=== PATIENT | female | born 1945 | race Caucasian/White ===

== ENCOUNTER 2019-05-22 11:52 | Inpatient (IN) | payer MEDICARE ==
[2019-05-22 13:02] LABS: Hemoglobin 11.4 g/dL (12.0-16.0); Mean Corpuscular HGB CONC 33.9 g/dL (32.0-36.0); Mean Corpuscular Hemoglobin 30.1 pg (27.0-31.0); Mean Corpuscular Volume 88.7 fL (78.0-98.0); Mean Platelet Volume 7.8 fL (7.4-10.4); Platelet Count 190 thou/uL (130-400); White Blood Cell (WBC) Count 2.6 thou/uL (4.8-10.8)
--- NOTE | 2019-05-22 13:05 | RAD ---
EXAM: Left Rib series HISTORY: Rib pain COMPARISON: None FINDINGS: Multiple views of the left ribs shows no evidence of displaced rib fracture. No underlying pleural th ickening or pneumothorax are seen. IMPRESSION: 1. No evidence of displaced rib fracture.
[2019-05-22 13:18] LABS: ALT (SGPT) 12 U/L (8-55); AST (SGOT) 17 U/L (5-34); Albumin 3.8 g/dL (3.4-4.8); Alkaline Phosphatase 53 U/L (40-150); Anion Gap 24 mmol/L (10-20); BUN (Urea Nitrogen) 16 mg/dL (9.8-20.1); Bilirubin, Total 0.4 mg/dL (0.2-1.2); CK (CPK) 29 U/L (29-168); Calc. Creatinine Clearance 0 mL/min (70-130); Calcium 9.2 mg/dL (7.8-10.44); Carbon Dioxide 20 mmol/L (23-31); Chloride 94 mmol/L (98-107); Estimated GFR-MDRD 43; Globulin 2.6 g/dL (2.4-3.5); Glucose 72 mg/dL (83-110); Protein, Total 6.4 g/dL (6.0-8.3); Sodium 135 mmol/L (136-145)
[2019-05-22 13:20] LABS: Potassium 2.8 mmol/L (3.5-5.1)
[2019-05-22 13:27] LABS: Band 15 % (5-11); Eosinophils 2 % (0-10); Lymphocytes 52 % (21-51); MDiff Complete? YES; Monocytes 13 % (0-10); Neutrophil 12 % (42-75); Platelet Morphology Comment Appears Adequate; Polychromasia SLIGHT = 2-3 cells (100X) (0-2/hpf); Reactive Lymphocytes 4 % (0-10)
[2019-05-22] MEDS ORDERED: Potassium Bicarbonate/Cit Ac 25 MEQ TAB ONE (15:17)
[2019-05-22] MEDS ORDERED: Bisacodyl 5 MG TAB PO PRN (15:43)
[2019-05-22] MEDS ORDERED: HYDROcodone/Acetaminophen 5/325 mg Tablet PO PRN (15:43)
[2019-05-22] MEDS ORDERED: Ondansetron PF 4 MG/2 ML Vial IVP PRN (15:43)
[2019-05-22] MEDS ORDERED: Acetaminophen 325 MG TAB PO PRN (15:43)
[2019-05-22] MEDS ORDERED: Ondansetron ODT 4 MG TAB PO PRN (15:43)
[2019-05-22] MEDS ORDERED: Senokot S 8.6-50 MG TAB PO PRN (15:43)
[2019-05-22] MEDS ORDERED: hydrALAZINE 20 MG/ML VIAL SLOW IVP PRN (15:49)
[2019-05-22] MEDS ORDERED: Lorazepam 2 MG/ML VIAL ONE (16:14)
--- NOTE | 2019-05-22 16:58 | HP ---
REASON FOR ADMISSION: Dysphagia, nausea, vomiting, failure to thrive. HISTORY OF PRESENT ILLNESS: Ms. Yin is a very pleasant 74-year-old white female with past medical history of gastroesophageal reflux disease, Schatzki's ring in the esophagus, depression, and iron deficiency anemia, who presents with roughly 6 months of worsening failure to thrive including low appetite, dysphagia, nausea, vomiting. The patient has gone to the point where she is so disgusted that she does not even want to eat food or put food in her mouth because she thinks it is going to make her vomit. The patient has no appetite. Reportedly by family the last thing that she ate was last Thursday, which was one bite of Jell-O and she had to stop because she had thoughts she was going to throw up. The patient was recently seen at [facility] roughly about 2 weeks ago, where she underwent upper endoscopy. Upper endoscopy found a Schatzki's ring per the family, which they believed was mild in severity, and then the patient was recommended safer discharge in outpatient followup. The patient did follow up with mortuary technician, however, family was unhappy with their care and the patient refused to go back to see the mortuary technician. The patient did follow up with her primary care physician, who recommended following up with a different mortuary technician and the patient had an upcoming appointment with Dr. Valera this Thursday. However, due to the fact that the patient was not eating or drinking, they determined that the patient would not make it to the Thursday appointment. I find the patient in the emergency department. She is lying in bed, comfortably, breathing on room air, in no apparent distress. The patient's only complaint at this time is left-sided rib pain. The patient did have an x-ray of the ribs that showed no evidence of acute rib fracture. The patient denies nausea or vomiting, though she has not eaten. The patient has had some diarrhea over the past several weeks that fluctuates. The patient denies trouble breathing. No chest pains. No headaches. No other new neurologic type symptoms. The patient admitted to medical unit with Gastroenterology consultation requested for further recommendations. The patient of note has lost roughly 20 pounds of weight in the last 6 months, weighing about 135 pounds in November, now she is down to 112. When the patient was working for the [employer] from which she retired in 2011, she weighed about 160 pounds and at that time was on medications for diabetes. Since the patient has lost the weight, she has been stopped on diabetes medications secondary to hypoglycemia. During the time that the patient was working at the [employer], she was around 160 to 170 pounds. PAST MEDICAL HISTORY: 1. Uncontrolled GERD. 2. Schatzki's ring seen on recent EGD studies. 3. Hyperlipidemia. 4. Iron deficiency anemia. 5. Depression. REVIEW OF SYSTEMS: A 10-point review of systems was completed and negative aside from what mentioned in history of present illness. MEDICATIONS: 1. Ferrous gluconate. 2. Atorvastatin. 3. Prilosec. 4. Mirtazapine. ALLERGIES: SULFA MEDICATIONS, METOPROLOL. PHYSICAL EXAMINATION: VITAL SIGNS: Temperature 98, blood pressure 123/78, respirations 13, and pulse 75. GENERAL: The patient is in no apparent distress, lying in bed comfortably. She has a flat affect and is generally unhappy with being dragged to the hospital by her family. HEENT: Head is normocephalic, atraumatic. There is no lymphadenopathy. There are no oral lesions or exudates on the tonsils. CARDIAC: Regular rate and rhythm. No murmurs, rubs, or gallops. LUNGS: Clear to auscultation bilaterally. No wheezes, rales, or rhonchi. ABDOMEN: Soft, nontender, and nondistended without guarding or rigidity. Left flank, there is minor tenderness to palpation on the left rib. However, there are no gross anatomical defects. BACK: Paraspinal muscles are tender to palpation in the lumbar area. However, there are no gross deformities of the spine. EXTREMITIES: No edema in all 4 extremities. There are no gross deformities. NEUROLOGIC: Cranial nerves II through XII grossly intact. The patient is globally weak, however, there are no focal neurologic deficits. PSYCHIATRIC: The patient has a flat affect and appears to be clinically depressed. LABORATORY DATA: WBC 2.6, RBC 3.8, hemoglobin 11.4, hematocrit 33.7, MCV 87.7, and platelets 190. Sodium 135, potassium 2.8, chloride 94, carbon dioxide 20, anion gap of 22, blood urea nitrogen 16, creatinine of 1.2, estimated GFR of 43, glucose 72, calcium 9.2, AST 17, ALT 12, alkaline phosphatase 53, and creatine kinase 29. Troponin less than 0.010. Serum total protein 6.4, albumin 3.8. ASSESSMENT: 1. Failure to thrive. The patient with worsening nausea, vomiting, and no appetite over the past 6 months. She has unintentionally lost 20 pounds of weight and now refuses to eat because she has no appetite. 2. Uncontrolled gastroesophageal reflux disease with recent esophagogastroduodenoscopy 2 weeks ago at [facility]. 3. Schatzki's ring, seen on esophagogastroduodenoscopy. 4. Depression. 5. Unintentional weight loss. 6. Hyperlipidemia. 7. Iron deficiency. 8. Hypokalemia with a critical potassium of 2.8. 9. Acute kidney injury with a creatinine of 1.2, however, baseline renal function is unknown. PLAN: 1. Admit to medical floor/surgical unit. 2. Gastroenterology consultation, recommendations appreciated. 3. The patient has had recent EGD that was abnormal for Schatzki's ring and gastroesophageal reflux disease. 4. The patient was recommended to have a gastric emptying study in the outpatient Clinic at [facility], however, the patient and her daughter state that she is unable to complete the study as she cannot tolerate eating or drinking anything. 5. Replace potassium. 6. IV fluid resuscitation for acute kidney injury. 7. Resume PPI therapy. 8. Consider appetite stimulant. 9. In this patient, I do believe that uncontrolled clinical depression may be worsening her medical problems and her drive to eat. 10. GI prophylaxis with Protonix. 11. DVT prophylaxis with SCDs. Job ID: [id number]
[2019-05-22 17:29] VITALS: BMI 20.1
[2019-05-22] MEDS: Potassium Chloride 20 MEQ in Lactated Ringer's 1,000 ML IV SCH (18:54)
[2019-05-22] MEDS: Mirtazapine 15 MG Soltab PO SCH (20:28)
[2019-05-22] MEDS ORDERED: Famotidine 20 MG TAB PO SCH (21:00)
[2019-05-23 07:14] LABS: Hemoglobin 9.6 g/dL (12.0-16.0); Mean Corpuscular HGB CONC 32.2 g/dL (32.0-36.0); Mean Corpuscular Hemoglobin 28.7 pg (27.0-31.0); Mean Platelet Volume 8.1 fL (7.4-10.4); Platelet Count 151 thou/uL (130-400); RBC Distribution Width 13.9 % (11.5-14.5); Red Blood Cell (RBC) Count 3.33 mill/uL (4.20-5.40); White Blood Cell (WBC) Count 2.4 thou/uL (4.8-10.8)
[2019-05-23 07:20] LABS: Anion Gap 19 mmol/L (10-20); BUN (Urea Nitrogen) 12 mg/dL (9.8-20.1); Calc. Creatinine Clearance 43 mL/min (70-130); Calcium 8.5 mg/dL (7.8-10.44); Carbon Dioxide 18 mmol/L (23-31); Chloride 102 mmol/L (98-107); Estimated GFR-MDRD 61; Potassium 3.1 mmol/L (3.5-5.1); Sodium 136 mmol/L (136-145)
[2019-05-23 07:26] LABS: Glucose 57 mg/dL (83-110)
[2019-05-23 07:47] LABS: Band 4 % (5-11); Eosinophils 8 % (0-10); Lymphocytes 50 % (21-51); MDiff Complete? YES; Monocytes 18 % (0-10); Neutrophil 20 % (42-75); Platelet Morphology Comment Appears Adequate; Polychromasia SLIGHT = 2-3 cells (100X) (0-2/hpf)
[2019-05-23] MEDS: Potassium Chloride 20 MEQ in Lactated Ringer's 1,000 ML IV SCH (07:58)
[2019-05-23] MEDS: Pantoprazole 40 MG VIAL IVP SCH (07:59)
[2019-05-23 11:40] LABS: Bilirubin 1+ (Negative); Blood, Urine Negative (Negative); Clarity Clear (Clear); Glucose, Urine (Dipstick) Normal (Negative); Leukocyte 250 Leu/uL (Negative); Nitrite Negative (Negative); Protein, Urine (Dipstick) 70 mg/dL (Neg-Trace); RBC/HPF 0-3 HPF (0-3); Renal Epithelial 0-3 HPF (None Seen); Squamous Epithelial 0-3 HPF (0-3); Transitional Epithelial 0-3 HPF (None Seen); Urobilinogen 3 mg/dL (Less than 2)
[2019-05-23 11:52] LABS: Bacteria/HPF Rare-Few HPF (None Seen)
[2019-05-23] MEDS ORDERED: Dextrose 50% Abboject 50 ML SYRINGE ONE (12:54)
[2019-05-23] MEDS: cefTRIAXone\\ROCEPHIN 2 GM in Sodium Chloride 0.9% 100 ML IVPB SCH (14:31)
--- NOTE | 2019-05-23 15:45 | PDOC.HOSPP ---
- Subjective Subjective: Patient seen and examined. Clinically unchanged. Does not have desire to eat or drink because "it doesn't taste right". Has not vomited since arrival. Has not tried medications to stimulate appetite. Does not use dietary supplements such as ensure. Discussed case with patient, daughter, and dietitian. - Objective Vital Signs & Weight: Vital Signs (12 hours) Temp Pulse Resp BP Pulse Ox 05/23/19 08:00 97.6 F 69 18 93/54 L 100 05/23/19 04:00 97.6 F 74 18 102/66 100 Weight Admit Weight 110 lb 3.698 oz Weight 110 lb 3.698 oz I&O: 05/22/19 05/23/19 05/24/19 06:59 06:59 06:59 Intake Total 300 Balance 300 Result Diagrams: 05/23/19 06:34 05/23/19 06:34 Additional Labs: Accuchecks 05/23/19 12:11 POC Glucose 57 L* ROS - Medication Medications: Active Medications Generic Name Dose Route Start Last Admin Trade Name Freq PRN Reason Stop Dose Admin Potassium Chloride 20 meq/ 1,010 mls @ 75 mls/hr 05/22/19 16:30 05/23/19 07: 58 Lactated Ringer's IV 1,010 mls .[id number] LIZZ Administration Ceftriaxone Sodium 2 gm/ 100 mls @ 200 mls/hr 05/23/19 14:00 05/23/19 14:31 Sodium Chloride IVPB 05/30/19 16:00 100 mls Q24HR LIZZ Administration Mirtazapine 15 mg 05/22/19 21:00 05/22/19 20:28 Remeron Soltab PO Not Given HS LIZZ Ondansetron HCl 4 mg 05/22/19 15:43 05/23/19 08:15 Zofran IVP 4 mg Q6H PRN Administration Nausea/Vomiting Pantoprazole Sodium 40 mg 05/23/19 09:00 05/23/19 07:59 Protonix IVP 40 mg DAILY LIZZ Administration - Exam NAD, awake alert Eye: PERRL, anicteric sclera ENT: normocephalic atraumatic, moist mucosa Neck: supple, symmetric Heart: RRR, no murmur, no gallops, no rubs Respiratory: CTAB, no wheezes, no rales, no ronchi, normal chest expansion Gastrointestinal: soft, non-tender, non-distended, no palpable masses, no guarding, no rigidity Neurological: CN's grossly intact, normal sensation to touch, no focal deficits Musculoskeletal: normal tone Psychiatric: A&O x 3, flat affect Hosp A/P (1) Dysphagia Code(s): R13.10 - DYSPHAGIA, UNSPECIFIED Status: Acute (2) Failure to thrive in adult Status: Acute (3) Weight loss, unintentional Code(s): R63.4 - ABNORMAL WEIGHT LOSS Status: Acute (4) Depression Code(s): F32.9 - MAJOR DEPRESSIVE DISORDER, SINGLE EPISODE, UNSPECIFIED Status : Acute (5) GERD (gastroesophageal reflux disease) Code(s): K21.9 - GASTRO-ESOPHAGEAL REFLUX DISEASE WITHOUT ESOPHAGITIS Status: Acute (6) Lower esophageal ring (Schatzki) Code(s): K22.2 - ESOPHAGEAL OBSTRUCTION Status: Acute - Plan Plan: GI consultation, recommendations appreciated Recent EGD at [facility] - though they were un happy with the care and request a second opinion - records requested and in the paper chart Consider gastric emptying study - though patient states "I cant drink that fluid , it doesn't taste good" Has never had C-scope Start Megestrol for appetite stimulant Start Nutritional supplements - Ensure TID with meals Consult dietitian, recommendations appreciated Continue home medications as able GI and DVT PPX
[2019-05-23] MEDS: Megestrol Acetate 40 MG TAB PO SCH ×2 (17:53→20:50)
[2019-05-23] MEDS: Mirtazapine 15 MG Soltab PO SCH (20:50)
[2019-05-23] MEDS: D5W-AA 4.25% with LYTES 1,000 ML IV SCH (21:35)
--- NOTE | 2019-05-24 02:53 | CON ---
DATE OF CONSULTATION: 05/23/2019 CHIEF COMPLAINT: Loss of appetite, weight loss. HISTORY OF PRESENT ILLNESS: Ms. Yin is a 74-year-old woman who reports around 6 weeks ago that her food quit smelling good to her and had a foul smell to her and also foul taste. Anything that she would put in her mouth would make her gag. She has never really got to the point that she could swallow her food and even though she maybe having some nausea, nausea and vomiting have not been actual significant factors with this. She just has lost all taste and smell for food and that when she tries to swallow, it makes her gag. She has had no abdominal pain with this. Had some soreness around the left rib. She did have a few episodes of brown watery diarrhea, but does not have frequent bowel movement. She is unable to really quantify how often she has been having bowel movement otherwise. She has had no blood in the stool. She has never had a colonoscopy. Due to her nausea and lack of oral intake and has become dehydrated, she went to [facility] about a month ago. An upper endoscopy was performed, which reportedly showed the Schatzki ring, but otherwise was unremarkable. She had a CT scan of the abdomen and pelvis at [facility] that showed no pancreatic lesion or other obvious explanation for her symptoms. She was reported to have minimal stranding densities suggested along the medial aspect of the mid ascending colon. She was on no medications over the last few months prior to the onset of her symptoms. She had been on blood pressure medicine, diabetes medicine in the past, but quit taking those about a year ago due to some gradual weight loss, but working. Her baseline weight in the past had been in the 160-180 range, however, she lost down to 135, it is her new baseline over the last few years. Over the last 6 weeks, she has lost an additional 20 pounds or so. After her hospitalization a month ago, she was discharged on iron and atorvastatin, omeprazole, and mirtazapine. Here in the hospital, she has been given Clinimix peripheral nutrition, Megace along with the mirtazapine. PAST MEDICAL HISTORY: Diabetes and hypertension for which she no longer had to take medication after gradual weight loss over the last few years. Also recently has been started on cholesterol medication for hyperlipidemia. PAST SURGICAL HISTORY: Hysterectomy. FAMILY HISTORY: Negative for GI malignancy. SOCIAL HISTORY: No alcohol, tobacco, or drugs. ALLERGIES: SULFA, METOPROLOL. MEDICATION: Noted above. Currently in the hospital, she is on 1. Ceftriaxone. 2. Megace. 3. Mirtazapine. At home, she was on 1. Omeprazole. 2. Mirtazapine. 3. Ferrous gluconate. 4. Atorvastatin. REVIEW OF SYSTEMS: Negative x10 systems reviewed except as stated in the history of present illness. PHYSICAL EXAMINATION: VITAL SIGNS: Temperature 97.8, pulse 83, blood pressure 132/69. GENERAL: She is in no acute distress. Alert and oriented x3. HEENT: Eyes have no scleral icterus. Oropharynx is clear without lesions. No cervical or supraclavicular lymphadenopathy. LUNGS: Clear to auscultation bilaterally. HEART: Regular rate and rhythm without murmur. ABDOMEN: Soft. She has some minimal tenderness over the left floating rib. Bowel sounds are present. No hepatomegaly. EXTREMITIES: No lower extremity edema. NEUROLOGIC: Cranial nerves are grossly intact. LABORATORY DATA: White blood cell count 2.4, hemoglobin is 9.6, platelets 151, creatinine 0.9, bilirubin 0.4. AST 17, ALT 12, alkaline phosphatase 53, albumin 3.8, MCV 89. IMPRESSION: 1. Altered sense of taste and smell with gagging with anything she puts in her mouth with associated loss of appetite. Upper endoscopy last month was negative. She also had a CT scan did not show any obvious pancreatic lesion or malignancy in the abdomen. I will need to rule out a central process. 2. Dehydration and acute kidney disease, improved. 3. Anemia, normocytic. Hemoglobin dropped from 11.4 to 9.6 with rehydration. There is some degree of pancytopenia with low white blood cell count at 2.4 with 20% neutrophils and also borderline low platelet count at 151. 4. Neutropenia. RECOMMENDATIONS: 1. CT scan of the brain tomorrow with contrast. 2. Check iron studies, B12, and folate. 3. Check tissue transglutaminase antibody. 4. Obtain recent endoscopy report. 5. If she is iron deficient, she will need colonoscopy and I would anticipate repeat upper endoscopy. 6. Consider hematology evaluation of the neutropenia depending on clinical course. Job ID: [id number]
[2019-05-24 06:14] LABS: Hemoglobin 9.7 g/dL (12.0-16.0); Hypochromia SLIGHT = 6-15 cells (100X) (0-5/hpf); Lymphocytes 52 % (21-51); MDiff Complete? YES; Mean Corpuscular HGB CONC 32.6 g/dL (32.0-36.0); Mean Corpuscular Volume 88.9 fL (78.0-98.0); Mean Platelet Volume 7.7 fL (7.4-10.4); Monocytes 10 % (0-10); Neutrophil 38 % (42-75); Platelet Count 146 thou/uL (130-400); Platelet Morphology Comment Appears Adequate; Red Blood Cell (RBC) Count 3.36 mill/uL (4.20-5.40); White Blood Cell (WBC) Count 2.2 thou/uL (4.8-10.8)
[2019-05-24 06:15] LABS: Anion Gap 12 mmol/L (10-20); BUN (Urea Nitrogen) 11 mg/dL (9.8-20.1); Calc. Creatinine Clearance 44 mL/min (70-130); Calcium 8.7 mg/dL (7.8-10.44); Carbon Dioxide 24 mmol/L (23-31); Chloride 101 mmol/L (98-107); Estimated GFR-MDRD 63; Glucose 104 mg/dL (83-110); Iron 52 ug/dL (50-170); Iron Binding Capacity, Total 150 mcg/dL (265-497); Sodium 134 mmol/L (136-145)
[2019-05-24 06:19] LABS: Potassium 2.9 mmol/L (3.5-5.1)
[2019-05-24 06:33] LABS: Ferritin 476.53 ng/mL (10-291); Thyroid Stimulating Hormone 2.1588 uIU/mL (0.35-4.94)
[2019-05-24 06:47] LABS: Folate (Folic Acid) 1.9 ng/mL (7.0-31.4)
[2019-05-24] MEDS ORDERED: Potassium Chloride 40 MEQ in Sodium Chloride 0.9% 250 ML 250 ML IVPB SCH (07:00)
[2019-05-24] MEDS: Megestrol Acetate 40 MG TAB PO SCH ×4 (09:22→20:48)
[2019-05-24] MEDS: Pantoprazole 40 MG VIAL IVP SCH (09:23)
[2019-05-24] MEDS: Potassium Chloride 20 MEQ in Premix Bag 1 BAG IVPB SCH ×2 (09:24→12:59)
--- NOTE | 2019-05-24 11:37 | CT ---
EXAM: CT brain without and with contrast HISTORY: Abnormal sense of smell and taste; evaluate for brain tumor COMPARISON: None TECHNIQUE: Multiple contiguous axial images were obtained and a CT of the brain without and with cont rast. FINDINGS: The brain is normal in morphology and attenuation without focal lesions or confluent areas of infarction. There is no evidence of hydrocephalus, intracranial hemorrhage, or extra-axial fluid collection. No abnormal enhancement is seen. The calvarium and overlying soft tissues are unremarkable. The visualized paranasal sinuses and masto id air cells are well aerated. IMPRESSION: No evidence of acute intracranial abnormality
--- NOTE | 2019-05-24 14:03 | PDOC.HOSPP ---
- Subjective Subjective: Seen and examined. Patients sister at bedside. Patient clinically unchanged. Flat affect. No desire to eat. Patient states she hasent seen any improvement from Megestrol. - Objective Vital Signs & Weight: Vital Signs (12 hours) Temp Pulse Resp BP BP Pulse Ox 05/24/19 08:00 97.4 F L 82 20 104/69 97 05/24/19 04:00 97.5 F L 74 20 112/73 97 Weight Admit Weight 110 lb 3.698 oz Weight 110 lb 3.698 oz I&O: 05/23/19 05/24/19 05/25/19 06:59 06:59 06:59 Intake Total 540 Balance 540 Result Diagrams: 05/24/19 05:45 05/24/19 05:45 Additional Labs: Accuchecks 05/24/19 05/23/19 05/23/19 04:58 20:31 16:27 POC Glucose 105 69 L 68 L Radiology Reviewed by me: Yes (CT head) ROS - Medication Medications: Active Medications Generic Name Dose Route Start Last Admin Trade Name Freq PRN Reason Stop Dose Admin Ceftriaxone Sodium 2 gm/ 100 mls @ 200 mls/hr 05/23/19 14:00 05/23/19 14:31 Sodium Chloride IVPB 05/30/19 16:00 100 mls Q24HR LIZZ Administration Amino Acids/Electrolytes/Dextrose 1,000 mls @ 41.667 mls/hr 05/23/19 18:00 21:35 Clinimix E 4.25/5 IV 1,000 mls .Q24H LIZZ Administration Megestrol Acetate 40 mg 05/23/19 17:00 05/24/19 09:22 Megace PO 40 mg QID LIZZ Administration Mirtazapine 15 mg 05/22/19 21:00 05/23/19 20:50 Remeron Soltab PO 15 mg HS LIZZ Administration Ondansetron HCl 4 mg 05/22/19 15:43 05/23/19 08:15 Zofran IVP 4 mg Q6H PRN Administration Nausea/Vomiting Pantoprazole Sodium 40 mg 05/23/19 09:00 05/24/19 09:23 Protonix IVP 40 mg DAILY LIZZ Administration Sodium Chloride 10 ml 05/24/19 09:00 05/24/19 09:26 Flush - Normal Saline IVF Not Given Q12HR LIZZ - Exam NAD Eye: anicteric sclera Eye - other findings: EOMI ENT: moist mucosa Neck: supple, no JVD Heart: RRR, no murmur Respiratory: CTAB, no wheezes, no rales, no ronchi Gastrointestinal: soft, non-tender, non-distended, normal bowel sounds Extremities: no clubbing, no edema Skin: no rashes Neurological: CN's grossly intact, normal sensation to touch Musculoskeletal: generalized weakness Psychiatric: A&O x 3, flat affect Hosp A/P (1) Dysphagia Code(s): R13.10 - DYSPHAGIA, UNSPECIFIED Status: Acute (2) Failure to thrive in adult Status: Acute (3) Weight loss, unintentional Code(s): R63.4 - ABNORMAL WEIGHT LOSS Status: Acute (4) Depression Code(s): F32.9 - MAJOR DEPRESSIVE DISORDER, SINGLE EPISODE, UNSPECIFIED Status : Acute (5) GERD (gastroesophageal reflux disease) Code(s): K21.9 - GASTRO-ESOPHAGEAL REFLUX DISEASE WITHOUT ESOPHAGITIS Status: Acute (6) Lower esophageal ring (Schatzki) Code(s): K22.2 - ESOPHAGEAL OBSTRUCTION Status: Acute - Plan Plan: GI consultation, recommendations appreciated Recent EGD at [facility] Has never had C-scope Trial of Megestrol for appetite stimulant Nutritional supplements - Ensure TID with meals Consult dietitian, recommendations appreciated CT head reviewed - No acute pathology Continue home medications as able Replace electrolytes as needed GI and DVT PPX
[2019-05-24] MEDS: cefTRIAXone\\ROCEPHIN 2 GM in Sodium Chloride 0.9% 100 ML IVPB SCH (15:13)
[2019-05-24] MEDS ORDERED: Potassium Chloride 20 MEQ TAB PO SCH (16:30)
[2019-05-24] MEDS: D5W-AA 4.25% with LYTES 1,000 ML IV SCH (18:17)
--- NOTE | 2019-05-24 18:52 | PRG ---
DATE OF SERVICE: 05/24/2019 SUBJECTIVE: Ms. Yin states that she did get up and walk around some today. She had one small bowel movement without diarrhea. She has had no abdominal pain. Still with no appetite. OBJECTIVE: VITAL SIGNS: Temperature 97.4, pulse 73, and blood pressure 119/82. GENERAL: She is in no acute distress. She is alert and oriented x3. HEENT: Eyes have no scleral icterus. Oropharynx is clear without lesions. No cervical or supraclavicular lymphadenopathy. LUNGS: Clear to auscultation bilaterally. HEART: Regular rate and rhythm without murmur. ABDOMEN: Soft, nontender, and nondistended. Bowel sounds are present. EXTREMITIES: No lower extremity edema. IMPRESSION: 1. Loss of appetite and altered sense of taste and smell of food. CT scan of the brain was negative today. Upper endoscopy last month was reportedly negative. CT scan was also reportedly negative. 2. Dehydration and acute kidney disease with improvement in her creatinine. 3. Normocytic anemia. Her ferritin is 476, iron 52, TIBC 150. This is consistent with anemia of chronic disease. 4. Neutropenia. 5. Folate deficiency. The low folate and normal B12 are not a usual pattern. It is unclear if the anemia and neutropenia could be nutritionally related. Her albumin actually was normal at 3.8. RECOMMENDATIONS: 1. Replace folic acid. 2. Hematology consultation regarding the neutropenia and anemia. 3. We will check thiamine, selenium copper. 4. Await tissue transglutaminase antibody. 5. Again request endoscopy and pathology reports from [facility] from last month. 6. Continue to monitor her nutritional intake over the next few days. Request dietitian recommendations and consideration of calorie count. Next step would likely be percutaneous endoscopic gastrostomy tube placement. However, given her normal albumin on presentation, we will need the assistance of dietitians regarding this. Job ID: [id number]
[2019-05-24 20:13] LABS: INR-International Normal Ratio 1.1; Prothrombin Time 14.2 SEC (12.0-14.7)
[2019-05-24] MEDS: Mirtazapine 15 MG Soltab PO SCH (20:43)
[2019-05-25 06:04] LABS: Anion Gap 14 mmol/L (10-20); BUN (Urea Nitrogen) 10 mg/dL (9.8-20.1); Calc. Creatinine Clearance 49 mL/min (70-130); Calcium 8.4 mg/dL (7.8-10.44); Carbon Dioxide 21 mmol/L (23-31); Chloride 102 mmol/L (98-107); Estimated GFR-MDRD 71; Glucose 102 mg/dL (83-110); Potassium 3.7 mmol/L (3.5-5.1); Sodium 133 mmol/L (136-145)
[2019-05-25 06:13] LABS: Band 1 % (5-11); Eosinophils 6 % (0-10); Hemoglobin 9.8 g/dL (12.0-16.0); Lymphocytes 58 % (21-51); MDiff Complete? YES; Mean Corpuscular HGB CONC 34.2 g/dL (32.0-36.0); Mean Corpuscular Hemoglobin 30.7 pg (27.0-31.0); Mean Corpuscular Volume 89.8 fL (78.0-98.0); Mean Platelet Volume 7.9 fL (7.4-10.4); Monocytes 10 % (0-10); Neutrophil 24 % (42-75); Nucleated RBC 1 % (0); Platelet Count 133 thou/uL (130-400); Platelet Morphology Comment Appears Adequate; RBC Distribution Width 13.9 % (11.5-14.5); Red Blood Cell (RBC) Count 3.19 mill/uL (4.20-5.40); White Blood Cell (WBC) Count 2.6 thou/uL (4.8-10.8)
[2019-05-25] MEDS: Pantoprazole 40 MG VIAL IVP SCH (08:27)
[2019-05-25] MEDS: Megestrol Acetate 40 MG TAB PO SCH ×4 (08:27→21:00)
[2019-05-25] MEDS: Folic Acid 1 MG TAB PO SCH (08:27)
--- NOTE | 2019-05-25 12:26 | PDOC.HOSPP ---
- Subjective Subjective: Seen and examined. Clinically patient looking better with Clinimix on board there is some nutrition going in. Patient still not eating, states that she only ate "1 M&M candy and a sip of orange juice" Agree with calorie count. - Objective Vital Signs & Weight: Vital Signs (12 hours) Temp Pulse Resp BP Pulse Ox 05/25/19 08:00 98 05/25/19 07:35 98.0 F 80 16 136/83 98 Weight Admit Weight 110 lb 3.698 oz Weight 110 lb 3.698 oz I&O: 05/24/19 05/25/19 05/26/19 06:59 06:59 06:59 Intake Total 540 612 Balance 540 612 Result Diagrams: 05/25/19 04:47 05/25/19 04:47 Radiology Reviewed by me: Yes (CT head) ROS - Medication Medications: Active Medications Generic Name Dose Route Start Last Admin Trade Name Freq PRN Reason Stop Dose Admin Folic Acid 1 mg 05/25/19 09:00 05/25/19 08:27 Folvite PO 1 mg DAILY LIZZ Administration Ceftriaxone Sodium 2 gm/ 100 mls @ 200 mls/hr 05/23/19 14:00 05/24/19 15:13 Sodium Chloride IVPB 05/30/19 16:00 100 mls Q24HR LIZZ Administration Amino Acids/Electrolytes/Dextrose 1,000 mls @ 41.667 mls/hr 05/23/19 18:00 18:17 Clinimix E 4.25/5 IV 1,000 mls .Q24H LIZZ Administration Megestrol Acetate 40 mg 05/23/19 17:00 05/25/19 08:27 Megace PO 40 mg QID LIZZ Administration Mirtazapine 15 mg 05/22/19 21:00 05/24/19 20:43 Remeron Soltab PO 15 mg HS LIZZ Administration Ondansetron HCl 4 mg 05/22/19 15:43 05/23/19 08:15 Zofran IVP 4 mg Q6H PRN Administration Nausea/Vomiting Pantoprazole Sodium 40 mg 05/23/19 09:00 05/25/19 08:27 Protonix IVP 40 mg DAILY LIZZ Administration Sodium Chloride 10 ml 05/24/19 09:00 05/25/19 08:28 Flush - Normal Saline IVF Not Given Q12HR LIZZ - Exam NAD Eye: PERRL Eye - other findings: EOMI ENT: normocephalic atraumatic, no oropharyngeal lesions, moist mucosa Neck: supple Heart: RRR, no murmur, no gallops, no rubs Respiratory: CTAB, no wheezes, no rales Gastrointestinal: soft, non-tender, non-distended, normal bowel sounds Extremities: no edema Skin: no rashes Neurological: CN's grossly intact, normal sensation to touch, no focal deficits , no new deficit Musculoskeletal: generalized weakness, diffuse muscle atrophy Psychiatric: A&O x 3, flat affect Hosp A/P (1) Dysphagia Code(s): R13.10 - DYSPHAGIA, UNSPECIFIED Status: Acute (2) Failure to thrive in adult Status: Acute (3) Weight loss, unintentional Code(s): R63.4 - ABNORMAL WEIGHT LOSS Status: Acute (4) Depression Code(s): F32.9 - MAJOR DEPRESSIVE DISORDER, SINGLE EPISODE, UNSPECIFIED Status : Acute (5) GERD (gastroesophageal reflux disease) Code(s): K21.9 - GASTRO-ESOPHAGEAL REFLUX DISEASE WITHOUT ESOPHAGITIS Status: Acute (6) Lower esophageal ring (Schatzki) Code(s): K22.2 - ESOPHAGEAL OBSTRUCTION Status: Acute - Plan Plan: GI consultation, recommendations appreciated Hematology/ Oncology consult requested Calorie count Continue Clinimix until adequate enteral nutrition can be achieved Trial of Megestrol for appetite stimulant Nutritional supplements - Ensure TID with meals Consult dietitian, recommendations appreciated Recent EGD at [facility] Has never had C-scope CT head reviewed - No acute pathology Continue home medications as able Replace electrolytes as needed GI and DVT PPX
--- NOTE | 2019-05-25 13:58 | CON ---
DATE OF CONSULTATION: REASON FOR CONSULT: Leukopenia. HISTORY OF PRESENT ILLNESS: Ms. Yin is a 74-year-old female, who was admitted for weight loss and poor appetite. She has had significant weight loss over the last 6 weeks up to 20 pounds and almost 30 over the last several months. She states that food makes her nauseated and so she has been eating very little. She has been evaluated at [facility] and had an upper endoscopy, which showed a Schatzki ring. She also had a CT scan of the abdomen and pelvis at [facility], which was essentially normal. She was admitted to this facility and started on PPN and Megace. She has been seen by Dr. Valera, who ordered nutritional studies. Her B12 was 536 and her folate was 1.9. She has a WBC count of 2.6. On admission, her hemoglobin was 11.4, which is now 9.8 after hydration. We were asked to see the patient regarding her neutropenia. The patient denies any chronic infections. No fevers, chills, or night sweats. She is followed by Dr. Knight at [facility]. History was obtained from the patient and review of medical records as daughter is not at bedside at this time. PAST MEDICAL HISTORY: 1. GERD. 2. Hyperlipidemia. 3. History of iron deficiency anemia. 4. Depression. 5. History of hypertension and diabetes, which she no longer requires. PAST SURGICAL HISTORY: Hysterectomy. MEDICATIONS: Home medicines; 1. Ferrous gluconate. 2. Atorvastatin. 3. Prilosec. 4. Mirtazapine. ALLERGIES: SULFA AND TOPROL. FAMILY HISTORY: Noncontributory. SOCIAL HISTORY: Single. Lives alone. REVIEW OF SYSTEMS: Positive for fatigue and weakness. Otherwise, negative. PHYSICAL EXAMINATION: VITAL SIGNS: Temperature is 98.0, pulse is 80, respiratory rate is 16, and BP is 136/83. She is 98% on room air. GENERAL: This is a frail female, in no acute distress. HEENT: Normocephalic and atraumatic. Pupils are equal and reactive to light. NECK: Supple. CV: Regular rate and rhythm. LUNGS: Clear anterior. ABDOMEN: Soft and nontender. Bowel sounds are positive. EXTREMITIES: No clubbing, cyanosis, or edema. SKIN: No rash. HEMATOLOGIC: No petechiae or purpura. NEUROLOGIC: Nonfocal. PSYCH: She is alert and oriented. PERTINENT LABS AND X-RAYS: Current WBCs are 2.6, hemoglobin 9.8, hematocrit 28.7, platelet count is 133,000, 24% neutrophils, 1% bands, and 58% lymphocytes. She has one nucleated RBC. PT is 14.2 and INR is 1.1. Sodium is 133, potassium is 3.7, chloride is 102, CO2 is 21, BUN is 10, creatinine is 0.79, calcium is 8.4, and magnesium is 1.3. Iron is 52, TIBC is 150, ferritin is 476, B12 is 536, and folate is 1.9. TSH is normal. Total bilirubin is 0.4, AST is 17, ALT is 12, and alkaline phosphatase is 53. Creatine kinase is 29. Serum total protein 6.4, albumin 3.8, and globulin 2.6. ASSESSMENT: 1. Folic acid deficiency. 2. Neutropenia with an ANC of 0.6. 3. Failure to thrive. DISCUSSION: The patient has been placed on folic acid. She continues to eat poorly here and remains on PPN. Agree that she may need a feeding tube if her caloric intake does not increase. Her neutropenia and anemia may be associated with folic acid, although this is unusual presentation as she does not have macrocytic anemia nor an abnormal B12. Case was discussed with Dr. Jonas, who reviewed her medical record. We recommend that we replete her folic acid and monitor her CBC. If her counts do not improve, further workup may be indicated. Thank you for the consult. Job ID: [id number]
[2019-05-25] MEDS: cefTRIAXone\\ROCEPHIN 2 GM in Sodium Chloride 0.9% 100 ML IVPB SCH (15:12)
--- NOTE | 2019-05-25 16:57 | PRG ---
DATE OF SERVICE: 05/25/2019 SUBJECTIVE: Ms. Yin ate small amount of eggs today. She spit her chicken noodle soup back out. She had some orange juice this morning. She states she has been up walking today. She has no abdominal pain, no nausea. OBJECTIVE: VITAL SIGNS: Temperature 98.0, pulse 80, blood pressure 136/83. GENERAL: She is in no acute distress. Alert and oriented x3. LUNGS: Clear to auscultation bilaterally. HEART: Regular rate and rhythm. No murmur. ABDOMEN: Soft, nontender, nondistended. Bowel sounds are present. EXTREMITIES: No lower extremity edema. LABORATORY DATA: White blood cell count 2.6, hemoglobin 9.8, platelets 133, neutrophils 24%. INR 1.1. Creatinine 0.79, magnesium 1.3. IMPRESSION: 1. Failure to thrive and poor oral intake. She has loss of appetite and altered sense of taste and smell with this. She had reportedly negative EGD and CT scan. CT of the brain was negative. She is able to swallow solid food. There is a very flat affect, and depression might be the primary source for her symptoms. Either way, if she is unable to meet her nutritional needs orally, then she might ultimately require Dobbhoff or PEG tube placement. 2. Pancytopenia with neutropenia and normocytic anemia. She is not iron deficient. She has isolated folate deficiency. She is on supplementation. RECOMMENDATIONS: 1. Calorie count. 2. Hematology has evaluated the patient, we will continue to follow the trend of her labs. 3. Additional labs are pending including tissue transglutaminase antibody and additional micronutrients. 4. She is receiving peripheral IV nutrition. 5. She has been given Megace. 6. I am unclear of the indication of the ceftriaxone; however, if this is for any GI indication, I would expect it should be able to be discontinued at this point. Job ID: [id number]
[2019-05-25] MEDS: D5W-AA 4.25% with LYTES 1,000 ML IV SCH (17:21)
[2019-05-25 17:34] LABS: EliA Celiac New Method **** NEW METHOD ****; t-Transglutaminase (tTG) IgA 0.4 EliAU/mL (<7 Negative)
[2019-05-25] MEDS: Mirtazapine 15 MG Soltab PO SCH (21:00)
[2019-05-26 06:22] LABS: Anion Gap 13 mmol/L (10-20); BUN (Urea Nitrogen) 10 mg/dL (9.8-20.1); Calc. Creatinine Clearance 59 mL/min (70-130); Calcium 8.7 mg/dL (7.8-10.44); Carbon Dioxide 23 mmol/L (23-31); Chloride 100 mmol/L (98-107); Estimated GFR-MDRD 89; Glucose 93 mg/dL (83-110); Potassium 3.4 mmol/L (3.5-5.1); Sodium 133 mmol/L (136-145)
[2019-05-26 06:45] LABS: Band 1 % (5-11); Eosinophils 10 % (0-10); Hemoglobin 9.5 g/dL (12.0-16.0); Lymphocytes 58 % (21-51); MDiff Complete? YES; Mean Corpuscular HGB CONC 33.3 g/dL (32.0-36.0); Mean Corpuscular Hemoglobin 29.4 pg (27.0-31.0); Mean Corpuscular Volume 88.3 fL (78.0-98.0); Mean Platelet Volume 8.1 fL (7.4-10.4); Monocytes 17 % (0-10); Neutrophil 14 % (42-75); Platelet Count 128 thou/uL (130-400); RBC Distribution Width 13.8 % (11.5-14.5); RBC Morphology Normal; Red Blood Cell (RBC) Count 3.21 mill/uL (4.20-5.40); White Blood Cell (WBC) Count 2.4 thou/uL (4.8-10.8)
[2019-05-26] MEDS: Pantoprazole 40 MG VIAL IVP SCH (09:09)
[2019-05-26] MEDS: Megestrol Acetate 40 MG TAB PO SCH ×4 (09:29→21:06)
[2019-05-26] MEDS: Folic Acid 1 MG TAB PO SCH (09:29)
[2019-05-26] MEDS ORDERED: Potassium Chloride 20 MEQ TAB PO SCH (09:30)
--- NOTE | 2019-05-26 11:04 | PDOC.MOPN ---
Interval History: Patient states she vomited last night. Refused folic acid pill this am. - Vital Signs Vital Signs: Vital Signs (12 hours) Temp Pulse Resp BP Pulse Ox 05/26/19 07:19 98.0 F 70 18 120/75 96 Weight Admit Weight 110 lb 3.698 oz Weight 110 lb 3.698 oz - Physical Exam General: Alert HEENT: Atraumatic, PERRLA, EOMI, Mucous membr. moist/pink Lungs: Clear to auscultation, Normal air movement Cardiovascular: Regular rate, Normal S1, Normal S2, No murmurs, Gallops, Rubs Abdomen: Normal bowel sounds, Soft, No tenderness, No hepatospenomegaly, No masses Extremities: No clubbing, No cyanosis, No edema, Normal pulses, No tenderness/ swelling Skin: No rashes, No breakdown, No significant lesion Neurological: Normal speech - Labs Result Diagrams: 05/26/19 05:52 05/26/19 05:52 Lab results: Laboratory Results - last 24 hr 05/26/19 05:52: WBC 2.4 L, RBC 3.21 L, Hgb 9.5 L, Hct 28.4 L, MCV 88.3, MCH 29.4 , MCHC 33.3, RDW 13.8, Plt Count 128 L, MPV 8.1, Neutrophils % (Manual) 14 L, Band Neuts % (Manual) 1 L, Lymphocytes % (Manual) 58 H, Monocytes % (Manual) 17 H, Eosinophils % (Manual) 10, RBC Morph Comment Normal 05/26/19 05:52: Sodium 133 L, Potassium 3.4 L, Chloride 100, Carbon Dioxide 23, Anion Gap 13, BUN 10, Creatinine 0.65, Estimated GFR (MDRD) 89, Glucose 93, Calcium 8.7 05/24/19 05:45: Tiss Transglutamin IgA 0.4, Celiac Disease Interp Status: lab reviewed by me A/P - Problem (1) Folate deficiency Current Visit: Yes Code(s): E53.8 - DEFICIENCY OF OTHER SPECIFIED B GROUP VITAMINS Status: Acute (2) Neutropenia Current Visit: Yes Code(s): D70.9 - NEUTROPENIA, UNSPECIFIED Status: Acute (3) Failure to thrive in adult Current Visit: Yes Status: Chronic - Plan Plan: Change folate to SC injection Encourage nutrition Continue PPN Follow CBC
[2019-05-26] MEDS ORDERED: Lidocaine 2% 11 ML SYR TOP SCH (12:15)
--- NOTE | 2019-05-26 13:55 | RAD ---
PORTABLE SUPINE AP ABDOMINAL RADIOGRAPH: 05/26/19 HISTORY: Evaluate nasogastric tube placement. FINDINGS: A nasogastric tube is noted in place which is coiled overlying the upper abdomen. The tip overlies th e expected location of the body of the stomach. Bowel gas pattern is nonspecific. There is linear ate lectasis versus scarring in the region of the lingula. Lung bases are otherwise clear. There is rounded calcification seen just to the right of the L4 vertebral body with translucent cente r centrally and this probably represents a phlebolith as opposed to ureteral calculus. Degenerative c hanges again seen in the spine with left convexed curvature of the thoracolumbar spine. IMPRESSION: Nasogastric tube noted in place which is coiled overlying the abdomen; the tip overlies the expected location of the proximal body of the stomach. POS: C
[2019-05-26] MEDS: Folic Acid 0.5 MG in Admixture Fee 1 EACH SC SCH (13:58)
[2019-05-26] MEDS: cefTRIAXone\\ROCEPHIN 2 GM in Sodium Chloride 0.9% 100 ML IVPB SCH (13:58)
--- NOTE | 2019-05-26 14:12 | PRG ---
DATE OF SERVICE: 05/26/2019 SUBJECTIVE: Ms. Yin refused medications today because she was gagging on oral intake and medicines early this morning and last night. She has had no significant nutritional intake by mouth today. OBJECTIVE: VITAL SIGNS: Temperature is 98, pulse 70, blood pressure 120/75. GENERAL: She is in no acute distress. Awake and alert. LUNGS: Clear to auscultation bilaterally. HEART: Regular rate and rhythm without murmur. ABDOMEN: Soft, nontender, nondistended. Bowel sounds are present. EXTREMITIES: No lower extremity edema. LABORATORY DATA: White blood cell count 2.4, hemoglobin 9.5, platelets 128. INR 1.1. Creatinine 0.65. Tissue transglutaminase antibody was 0.4. IMPRESSION: 1. Failure to thrive and inadequate oral intake with associated nutritional deficiencies. It is unclear if this is psychiatric in etiology. Her CT scan of her brain was normal. Recent endoscopy and CT were reportedly negative. Her serology is negative for evidence of celiac disease. 2. Folate deficiency. She is being changed to subcu administration due to gagging on her pills. 3. Pancytopenia. Hematology is following as well. RECOMMENDATIONS: 1. I placed an NG tube today to start enteral feedings. If she tolerates these well, then depending on the clinical course over the next few days, we may just need to place a percutaneous endoscopic gastrostomy tube. 2. She should be able to stop the peripheral IV nutrition once we get the enteral feeds up in running. 3. She is currently on ceftriaxone. If this is for a GI indication, she should be able to stop it. I am not clear of the current indication for the antibiotic. Job ID: [id number]
--- NOTE | 2019-05-26 15:35 | PDOC.HOSPP ---
- Subjective Encounter Date: 05/26/19 Encounter Time: 09:00 Subjective: Patient seen and examined. today NG tube placed, on PPN, No overnight events - Objective Vital Signs & Weight: Vital Signs (12 hours) Temp Pulse Resp BP Pulse Ox 05/26/19 09:30 96 05/26/19 07:19 98.0 F 70 18 120/75 96 Weight Admit Weight 110 lb 3.698 oz Weight 110 lb 3.698 oz I&O: 05/25/19 05/26/19 05/27/19 06:59 06:59 06:59 Intake Total 612 490 Output Total 100 Balance 612 490 -100 Result Diagrams: 05/26/19 05:52 05/26/19 05:52 ROS - Review of Systems Constitutional: denies: fever, chills, sweats, weakness, malaise, other Eyes: denies: pain, vision change, conjunctivae inflammation, eyelid inflammation, redness, other ENT: denies: ear pain, ear discharge, nose pain, nose discharge, nose congestion , mouth pain, mouth swelling, throat pain, throat swelling, other Respiratory: denies: cough, dry, shortness of breath, hemoptysis, SOB with excertion, pleuritic pain, sputum, wheezing, other Cardiovascular: denies: chest pain, palpitations, orthopnea, paroxysmal noc. dyspnea, edema, light headedness, other Gastrointestinal: denies: nausea, vomitting, abdominal pain, diarrhea, constipation, melena, hematochezia, other Genitourinary: denies: dysuria, frequency, incontinence, hematuria, retention, other Musculoskeletal: denies: neck pain, shoulder pain, arm pain, back pain, hand pain, leg pain, foot pain, other - Medication Medications: Active Medications Generic Name Dose Route Start Last Admin Trade Name Freq PRN Reason Stop Dose Admin Ceftriaxone Sodium 2 gm/ 100 mls @ 200 mls/hr 05/23/19 14:00 05/26/19 13:58 Sodium Chloride IVPB 05/30/19 16:00 100 mls Q24HR LIZZ Administration Amino Acids/Electrolytes/Dextrose 1,000 mls @ 41.667 mls/hr 05/23/19 18:00 17:21 Clinimix E 4.25/5 IV 1,000 mls .Q24H LIZZ Administration Folic Acid 0.5 mg/ 0.1 mls @ 0 mls/hr 05/26/19 12:00 05/26/19 13:58 Miscellaneous Medication SC 05/31/19 12:01 0.1 mls Q24HR LIZZ Administration Megestrol Acetate 40 mg 05/23/19 17:00 05/26/19 13:23 Megace PO Not Given QID LIZZ Mirtazapine 15 mg 05/22/19 21:00 05/25/19 21:00 Remeron Soltab PO 15 mg HS LIZZ Administration Ondansetron HCl 4 mg 05/22/19 15:43 05/23/19 08:15 Zofran IVP 4 mg Q6H PRN Administration Nausea/Vomiting Pantoprazole Sodium 40 mg 05/23/19 09:00 05/26/19 09:09 Protonix IVP 40 mg DAILY LIZZ Administration Sodium Chloride 10 ml 05/24/19 09:00 05/26/19 09:09 Flush - Normal Saline IVF 10 ml Q12HR LIZZ Administration - Exam NAD, ill appearing Eye: PERRL, anicteric sclera Eye - other findings: NG tube in place ENT: normocephalic atraumatic, no oropharyngeal lesions, dry oral mucosa Neck: supple, symmetric, no JVD Heart: RRR, no murmur, no gallops Respiratory: CTAB, no wheezes, no rales Gastrointestinal: soft, non-tender, non-distended, normal bowel sounds Extremities: no cyanosis, no clubbing, no edema Skin: normal turgor, no lesions, no rashes Neurological: CN's grossly intact, normal sensation to touch, no new deficit Musculoskeletal: normal tone, normal strength Psychiatric: normal affect, normal behavior Hosp A/P (1) Depression Code(s): F32.9 - MAJOR DEPRESSIVE DISORDER, SINGLE EPISODE, UNSPECIFIED Status : Acute (2) Dysphagia Code(s): R13.10 - DYSPHAGIA, UNSPECIFIED Status: Acute (3) Folate deficiency Code(s): E53.8 - DEFICIENCY OF OTHER SPECIFIED B GROUP VITAMINS Status: Acute (4) GERD (gastroesophageal reflux disease) Code(s): K21.9 - GASTRO-ESOPHAGEAL REFLUX DISEASE WITHOUT ESOPHAGITIS Status: Acute (5) Lower esophageal ring (Schatzki) Code(s): K22.2 - ESOPHAGEAL OBSTRUCTION Status: Acute (6) Neutropenia Code(s): D70.9 - NEUTROPENIA, UNSPECIFIED Status: Acute (7) Weight loss, unintentional Code(s): R63.4 - ABNORMAL WEIGHT LOSS Status: Acute (8) Failure to thrive in adult Status: Chronic (9) Hypokalemia Code(s): E87.6 - HYPOKALEMIA Status: Acute - Plan old records reviewed/req, plan discussed w/ family GI recommendation appreciated, today NG tube placed and now start enteral tube feeding and if she tolerates then will dc PPN and after that she may need PEG tube before discharge DC rocephin folate replacement medication reviewed as above symptomatic treatment replace potassium
[2019-05-26 15:54] LABS: Magnesium 1.3 mg/dL (1.6-2.6); Phosphorus 3.2 mg/dL (2.3-4.7)
[2019-05-26] MEDS ORDERED: Potassium Chloride 10 MEQ/100 ML PREMIX BAG IVPB SCH (17:15)
[2019-05-26] MEDS: D5W-AA 4.25% with LYTES 1,000 ML IV SCH (19:22)
[2019-05-26] MEDS: Mirtazapine 15 MG Soltab PO SCH (21:06)
[2019-05-27 06:23] LABS: ALT (SGPT) Less than 7 U/L (8-55); AST (SGOT) 9 U/L (5-34); Albumin 3.2 g/dL (3.4-4.8); Alkaline Phosphatase 41 U/L (40-150); Anion Gap 14 mmol/L (10-20); BUN (Urea Nitrogen) 16 mg/dL (9.8-20.1); Bilirubin, Total 0.3 mg/dL (0.2-1.2); Calc. Creatinine Clearance 61 mL/min (70-130); Calcium 8.3 mg/dL (7.8-10.44); Carbon Dioxide 23 mmol/L (23-31); Chloride 98 mmol/L (98-107); Estimated GFR-MDRD Greater than 90; Glucose 127 mg/dL (83-110); Phosphorus 3.3 mg/dL (2.3-4.7); Potassium 3.6 mmol/L (3.5-5.1); Protein, Total 5.2 g/dL (6.0-8.3); Sodium 131 mmol/L (136-145)
[2019-05-27] MEDS ORDERED: Senokot S 8.6-50 MG TAB PER TUBE PRN (06:30)
[2019-05-27] MEDS ORDERED: Acetaminophen 325 MG TAB PER TUBE PRN (06:30)
[2019-05-27] MEDS ORDERED: Ondansetron ODT 4 MG TAB PER TUBE PRN (06:30)
[2019-05-27 06:34] LABS: Band 4 % (5-11); Eosinophils 3 % (0-10); Hemoglobin 9.5 g/dL (12.0-16.0); Lymphocytes 52 % (21-51); MDiff Complete? YES; Mean Corpuscular HGB CONC 33.2 g/dL (32.0-36.0); Mean Corpuscular Hemoglobin 28.9 pg (27.0-31.0); Mean Platelet Volume 8.1 fL (7.4-10.4); Monocytes 19 % (0-10); Neutrophil 22 % (42-75); Platelet Count 122 thou/uL (130-400); RBC Distribution Width 13.8 % (11.5-14.5); Red Blood Cell (RBC) Count 3.27 mill/uL (4.20-5.40); White Blood Cell (WBC) Count 2.8 thou/uL (4.8-10.8)
[2019-05-27] MEDS: Pantoprazole 40 MG VIAL IVP SCH (08:23)
[2019-05-27] MEDS: Megestrol Acetate 40 MG TAB PER TUBE SCH ×4 (08:23→18:53)
--- NOTE | 2019-05-27 10:44 | PRG ---
DATE OF SERVICE: 05/27/2019 SUBJECTIVE: Ms. Yin has tolerated her NG tube feeds well. No vomiting. She did gag up some clear mucus, but no tube feeds. She had a formed bowel movement today. No abdominal pain. OBJECTIVE: VITAL SIGNS: Temperature 97.9, pulse 78, and blood pressure 103/63. GENERAL: She is in no acute distress. Alert and oriented x3. Affect remains flat. LUNGS: Clear to auscultation bilaterally. HEART: Regular rate and rhythm. ABDOMEN: Soft, nontender, nondistended. Bowel sounds are present. EXTREMITIES: No lower extremity edema. LABORATORY DATA: White blood cell count 2.8, hemoglobin 9.5, platelets 122. INR 1.1. Creatinine 0.63, bilirubin 0.3, AST 9, ALT 7, alkaline phosphatase 41, albumin 3.2. IMPRESSION: 1. Loss of appetite and adult failure to thrive. She gags with oral intake. Food just does not taste good to her. It is suspected this is primarily depression in nature, it is the cause of her cessation of eating. She had CT and endoscopy that are reportedly negative. We have again sent release of information for the endoscopy and pathology reports from [facility]. She has tolerated NG tube feeds well. Her stomach and small bowel seemed to be working just fine. I will request modified barium swallow today to rule out coordination issue with her swallowing. She does not have loss of strength with eating to suggest myasthenia. Her symptoms really are not suggestive of achalasia. I will request a barium esophagogram along with modified barium swallow to evaluate for evidence of achalasia as well anyway. 2. Folate deficiency. 3. Pancytopenia. 4. Protein-calorie malnutrition. RECOMMENDATIONS: 1. We will plan for modified barium swallow and barium esophagogram and upper GI today. 2. If these do not show any findings to alter the course, then the next step will be percutaneous endoscopic gastrostomy tube placement either for tomorr or Thursday. 3. Following that, I would anticipate she would need most likely some kind of transitional care between the hospital and home, work with Physical Therapy and Occupational Therapy and verify that she is able to give the tube feeds herself or as motivated to give the tube feeds herself. Really she needs psychiatric evaluation; however, we do not have Psychiatry available at this facility. Inpatient psychiatric care might be a consideration again if no neuromuscular or physical reason for the lack of eating is identified. 4. Continue folate replacement. Job ID: [id number]
[2019-05-27] MEDS: Folic Acid 0.5 MG in Admixture Fee 1 EACH SC SCH (12:02)
--- NOTE | 2019-05-27 14:50 | RAD ---
MODIFIED BARIUM SWALLOW IN PRESENCE OF SPEECH THERAPIST: HISTORY: Dysphagia, feeding difficulties FINDINGS: No aspiration is seen. Laryngeal penetration was noted. No persistent pooling of contrast is seen in the valleculae or piriform sinuses. Please see recommendations of the speech therapist for further management.
--- NOTE | 2019-05-27 15:00 | PDOC.HOSPP ---
- Subjective Encounter Date: 05/27/19 Encounter Time: 09:00 Subjective: no gagging or nausea this am is tolerating ng tube feeding - Objective Vital Signs & Weight: Vital Signs (12 hours) Temp Pulse Resp BP Pulse Ox 05/27/19 10:27 97 05/27/19 07:53 97.9 F 78 16 103/63 97 Weight Admit Weight 110 lb 3.698 oz Weight 110 lb 3.698 oz I&O: 05/26/19 05/27/19 05/28/19 06:59 06:59 06:59 Intake Total 490 1724 Output Total 300 Balance 490 1424 Result Diagrams: 05/27/19 05:02 05/27/19 05:02 ROS - Medication Medications: Active Medications Generic Name Dose Route Start Last Admin Trade Name Freq PRN Reason Stop Dose Admin Amino Acids/Electrolytes/Dextrose 1,000 mls @ 41.667 mls/hr 05/23/19 18:00 19:22 Clinimix E 4.25/5 IV 1,000 mls .Q24H LIZZ Administration Folic Acid 0.5 mg/ 0.1 mls @ 0 mls/hr 05/26/19 12:00 05/27/19 12:02 Miscellaneous Medication SC 05/31/19 12:01 0.1 mls Q24HR LIZZ Administration Megestrol Acetate 40 mg 05/27/19 09:00 05/27/19 12:02 Megace PER TUBE Not Given QID LIZZ Ondansetron HCl 4 mg 05/22/19 15:43 05/23/19 08:15 Zofran IVP 4 mg Q6H PRN Administration Nausea/Vomiting Pantoprazole Sodium 40 mg 05/23/19 09:00 05/27/19 08:23 Protonix IVP 40 mg DAILY LIZZ Administration Senna/Docusate Sodium 2 tab 05/27/19 06:30 05/27/19 08:22 Senokot S PER TUBE 2 tab BID PRN Administration Constipation Sodium Chloride 10 ml 05/24/19 09:00 05/27/19 08:23 Flush - Normal Saline IVF 10 ml Q12HR LIZZ Administration - Exam NAD, awake alert Eye: PERRL, anicteric sclera ENT: normocephalic atraumatic, no oropharyngeal lesions Neck: supple, no JVD Heart: RRR, no murmur Respiratory: no wheezes, no ronchi Gastrointestinal: soft, non-tender, normal bowel sounds Extremities: no clubbing, no edema Neurological: CN's grossly intact, no focal deficits Psychiatric: A&O x 3 Hosp A/P (1) Depression Code(s): F32.9 - MAJOR DEPRESSIVE DISORDER, SINGLE EPISODE, UNSPECIFIED Status : Suspected Qualifiers: Depression Type: major depressive disorder Psychotic features: without psychotic features (2) Dysphagia Code(s): R13.10 - DYSPHAGIA, UNSPECIFIED Status: Acute Qualifiers: Dysphagia type: unspecified Qualified Code(s): R13.10 - Dysphagia, unspecified (3) Folate deficiency Code(s): E53.8 - DEFICIENCY OF OTHER SPECIFIED B GROUP VITAMINS Status: Acute (4) GERD (gastroesophageal reflux disease) Code(s): K21.9 - GASTRO-ESOPHAGEAL REFLUX DISEASE WITHOUT ESOPHAGITIS Status: Acute (5) Weight loss, unintentional Code(s): R63.4 - ABNORMAL WEIGHT LOSS Status: Acute (6) Failure to thrive in adult Status: Chronic - Plan start pt on doxepin, mucinex. CT sinuses and neck(h/o post nasal drainage and thick secretions in her throat?) D/w , will have barium studies for completion to r/o mechanical causes hemostable d/w pt and family at bedside continue megace, protonix
--- NOTE | 2019-05-27 15:24 | CT ---
CT NECK WITH CONTRAST: Axial tomograms were obtained with multiplanar reconstruction. INDICATION: Difficulty swallowing. Loss of appetite. FINDINGS: There is an abnormal enhancing mass involving the lateral right parotid gland which measures approxim ately 2 cm AP dimension x 2 cm craniocaudal dimension. Left parotid unremarkable. Submandibular glands symmetric and unremarkable. Thyroid unremarkable. Nasopharynx unremarkable. The base of the tongue and oropharynx obscured by spray artifact from dental appliances. Genu glotti s and genu hyoid complex appears unremarkable. Waldeyer's ring appears normal and symmetric. Hypopharynx appears unremarkable. Larynx unremarkable. Parapharyngeal space unremarkable. Retropharyngeal space unremarkable. Manager Progressive Care space unremarkable. Carotid space unremarkable. Review of lymph nodes shows no significant level I lymph nodes. Level II lymph nodes are unremarkabl e without adenopathy. No level III, level IV, or level V adenopathy. Tiny nonspecific lymph nodes a re noted. Degenerative changes of the cervical spine with posterior spondylitic changes at all levels impinges on the cord at C5-6 and C6-7. Foraminal stenosis at these levels. Paranasal sinuses appear clear. IMPRESSION: 1. 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 ENT consultation is recommended. Parotid neoplasm should be excluded. 2. No evidence of cervical chain adenopathy. Degenerative changes in the cervical spine as describe d. POS: TPC
--- NOTE | 2019-05-27 15:32 | RAD ---
UPPER GI WITH THIN BARIUM: HISTORY: Difficulty swallowing FINDINGS: Swallowing was grossly normal. There is unobstructed flow of contrast through the esophagus into the stomach, duodenum and jejunum. Exam is however limited due to patient's inability to drink adequate amounts of contrast. The stomach was not satisfactorily distended. There is prominence of the cricopharyngeus muscle posteriorly in the upper cervical esophagus. There are tertiary contractions. No obstructing mass or stricture is seen. A 12 mm tablet passed from the esophagus into the stomach with minimal stasis in the distal esophagus . IMPRESSION: 1. Presbyesophagus 2. No evidence of obstructing mass or stricture.
--- NOTE | 2019-05-27 15:37 | CT ---
CT SINUSES WITHOUT CONTRAST: 05/27/19 INDICATIONS: Postnasal drainage, assess for sinusitis. The paranasal sinuses are well aerated and clear. No significant paranasal sinus edema or thickening seen. The mastoid air cells are also well aerated. There is septal deviation to the left and there is mild richi bullosa involving the right middle tu rbinate. There is a septal spur projecting to the left. IMPRESSION: No evidence of paranasal sinus mucosal disease. Septal deviation with septal spur to the left and con rich bullosa in the right middle turbinate. POS: TPC
--- NOTE | 2019-05-27 15:59 | PRG ---
DATE OF SERVICE: 05/27/2019 SUBJECTIVE: Ms. Yin had her modified barium swallow and barium esophagogram with upper GI x-ray today. She had some tongue weakness noted by the modified barium swallow, but no major pathology present. The speech pathologist has left recommendations for mechanical soft diet and thin liquids with no straws. The esophagogram and upper GI appeared unremarkable without evidence of achalasia or significant motility disorder. RECOMMENDATIONS: We will adjust regular diet to mechanical soft with thin liquids with no straws. We will see how she does with oral intake tomorrow and the rest of the day today. If she continues to fail to meet her nutritional needs with these diet modifications, we will plan to proceed with percutaneous endoscopic gastrostomy tube placement for Thursday. Job ID: [id number]
[2019-05-27] MEDS ORDERED: ISOVUE-370 76%-LOCM 1 ML ONE (16:33)
[2019-05-27] MEDS: D5W-AA 4.25% with LYTES 1,000 ML IV SCH (17:52)
[2019-05-27] MEDS: Doxepin HCl 25 MG CAP PO SCH (18:53)
[2019-05-27] MEDS: guaiFENesin ER 600 MG TAB PO SCH (18:53)
[2019-05-27] MEDS: Mirtazapine 15 MG Soltab PER TUBE SCH (18:54)
[2019-05-28 06:26] LABS: Anion Gap 11 mmol/L (10-20); BUN (Urea Nitrogen) 14 mg/dL (9.8-20.1); Calc. Creatinine Clearance 62 mL/min (70-130); Calcium 8.5 mg/dL (7.8-10.44); Carbon Dioxide 27 mmol/L (23-31); Chloride 99 mmol/L (98-107); Estimated GFR-MDRD Greater than 90; Glucose 85 mg/dL (83-110); Potassium 3.5 mmol/L (3.5-5.1); Sodium 133 mmol/L (136-145)
[2019-05-28 07:03] LABS: Band 6 % (5-11); Eosinophils 9 % (0-10); Hemoglobin 9.1 g/dL (12.0-16.0); Lymphocytes 57 % (21-51); MDiff Complete? YES; Mean Corpuscular HGB CONC 32.1 g/dL (32.0-36.0); Mean Corpuscular Hemoglobin 28.2 pg (27.0-31.0); Mean Corpuscular Volume 87.8 fL (78.0-98.0); Mean Platelet Volume 7.9 fL (7.4-10.4); Monocytes 16 % (0-10); Neutrophil 12 % (42-75); Platelet Count 121 thou/uL (130-400); RBC Distribution Width 13.8 % (11.5-14.5); Red Blood Cell (RBC) Count 3.22 mill/uL (4.20-5.40)
[2019-05-28] MEDS: Megestrol Acetate 40 MG TAB PER TUBE SCH ×4 (07:58→20:28)
[2019-05-28] MEDS: Ferrous Gluconate 324 MG TAB PO SCH (07:59)
[2019-05-28] MEDS: guaiFENesin ER 600 MG TAB PO SCH ×2 (07:59→20:28)
[2019-05-28] MEDS: FLUoxetine HCl 20 MG CAP PO SCH (07:59)
[2019-05-28] MEDS: Pantoprazole 40 MG VIAL IVP SCH (07:59)
--- NOTE | 2019-05-28 11:26 | PRG ---
DATE OF SERVICE: 05/28/2019 SUBJECTIVE: Ms. Yin states that she feels better today. She has tolerated a small amount of her pancakes by mouth today. No further vomiting this morning. OBJECTIVE: VITAL SIGNS: Temperature is 98.1, pulse is 90, and blood pressure 127/80. GENERAL: Her affect is not as flat today. She seems more alert and interactive. LUNGS: Clear to auscultation bilaterally. HEART: Regular rate and rhythm without murmur. ABDOMEN: Soft, nontender, and nondistended. Bowel sounds are present. EXTREMITIES: No lower extremity edema. IMPRESSION: 1. Loss of appetite with failure to thrive. 2. Protein calorie and multiple nutrient deficiencies from poor oral intake. 3. Pancytopenia, likely secondary to nutritional deficiencies. 4. Folate deficiency. 5. Apparent depression, which might be the primary source for her lack of oral intake. No obstructive or neuromuscular or mechanical process. Her motility process appears to be an obvious source for her lack of intake. RECOMMENDATIONS: 1. We are planning for percutaneous endoscopic gastrostomy tube placement for tomorrow. 2. Hopefully oral intake will continue to improve. The PEG tube will need to remain in place at least for two months, but could be potentially removed after that. The risks and benefits of the procedure were discussed with the patient and her daughter. We will see how she does with her oral intake today. If she has marked increase in her nutritional intake, then we could potentially delay the PEG tube placement, but for now, we will keep her on the schedule for tomorrow morning. Job ID: [id number]
--- NOTE | 2019-05-28 12:34 | EKG ---
Test Reason : WEAKNESS Blood Pressure : / mmHG Vent. Rate : 076 BPM Atrial Rate : 076 BPM P-R Int : 134 ms QRS Dur : 072 ms QT Int : 374 ms P-R-T Axes : 025 002 075 degrees QTc Int : 420 ms Normal sinus rhythm Confirmed by ELI PASTRANA ([id number]), editorial cartoonist KAITLIN LUBIN ([id number]) on 05/28/2019 12:34:06 PM Referred By: Confirmed By:ELI PASTRANA
[2019-05-28] MEDS: Folic Acid 0.5 MG in Admixture Fee 1 EACH SC SCH (12:44)
--- NOTE | 2019-05-28 12:52 | PDOC.HOSPP ---
- Subjective Encounter Date: 05/28/19 Encounter Time: 09:30 Subjective: awake, no complaints says she slept well had some pancakes this am - Objective Vital Signs & Weight: Vital Signs (12 hours) Temp Pulse Resp BP Pulse Ox 05/28/19 11:52 96.1 F L 84 16 116/71 05/28/19 08:00 100 05/28/19 07:44 98.1 F 80 16 127/80 100 Weight Admit Weight 110 lb 3.698 oz Weight 110 lb 3.698 oz I&O: 05/27/19 05/28/19 05/29/19 06:59 06:59 06:59 Intake Total 1724 540 Output Total 300 Balance 1424 540 Result Diagrams: 05/28/19 05:23 05/28/19 05:23 ROS - Medication Medications: Active Medications Generic Name Dose Route Start Last Admin Trade Name Freq PRN Reason Stop Dose Admin Doxepin HCl 25 mg 05/27/19 21:00 05/27/19 18:53 Sinequan PO Not Given HS LIZZ Ferrous Gluconate 324 mg 05/28/19 09:00 05/28/19 07:59 Fergon PO 324 mg DAILY LIZZ Administration Fluoxetine HCl 20 mg 05/28/19 09:00 05/28/19 07:59 Prozac PO 20 mg DAILY LIZZ Administration Guaifenesin 600 mg 05/27/19 21:00 05/28/19 07:59 Mucinex PO 600 mg Q12HR LIZZ Administration Folic Acid 0.5 mg/ 0.1 mls @ 0 mls/hr 05/26/19 12:00 05/28/19 12:44 Miscellaneous Medication SC 05/31/19 12:01 0.1 mls Q24HR LIZZ Administration Megestrol Acetate 40 mg 05/27/19 09:00 05/28/19 12:45 Megace PER TUBE 40 mg QID LIZZ Administration Mirtazapine 15 mg 05/27/19 21:00 05/27/19 18:54 Remeron Soltab PER TUBE Not Given HS LIZZ Ondansetron HCl 4 mg 05/22/19 15:43 05/23/19 08:15 Zofran IVP 4 mg Q6H PRN Administration Nausea/Vomiting Pantoprazole Sodium 40 mg 05/23/19 09:00 05/28/19 07:59 Protonix IVP 40 mg DAILY LIZZ Administration Senna/Docusate Sodium 2 tab 05/27/19 06:30 05/27/19 08:22 Senokot S PER TUBE 2 tab BID PRN Administration Constipation Sodium Chloride 10 ml 05/24/19 09:00 05/28/19 08:13 Flush - Normal Saline IVF Not Given Q12HR LIZZ - Exam NAD, awake alert Eye: PERRL, anicteric sclera ENT: no oropharyngeal lesions, moist mucosa Neck: supple, no JVD Heart: RRR, no murmur Respiratory: no wheezes, no rales Gastrointestinal: soft, non-distended, normal bowel sounds Extremities: no clubbing, no edema Neurological: CN's grossly intact, no focal deficits Psychiatric: A&O x 3 Hosp A/P (1) Depression Code(s): F32.9 - MAJOR DEPRESSIVE DISORDER, SINGLE EPISODE, UNSPECIFIED Status : Suspected Qualifiers: Depression Type: major depressive disorder Psychotic features: without psychotic features (2) Dysphagia Code(s): R13.10 - DYSPHAGIA, UNSPECIFIED Status: Acute Qualifiers: Dysphagia type: unspecified Qualified Code(s): R13.10 - Dysphagia, unspecified (3) Folate deficiency Code(s): E53.8 - DEFICIENCY OF OTHER SPECIFIED B GROUP VITAMINS Status: Acute (4) GERD (gastroesophageal reflux disease) Code(s): K21.9 - GASTRO-ESOPHAGEAL REFLUX DISEASE WITHOUT ESOPHAGITIS Status: Chronic (5) Weight loss, unintentional Code(s): R63.4 - ABNORMAL WEIGHT LOSS Status: Acute (6) Failure to thrive in adult Status: Chronic (7) Nutritional deficiency Code(s): E63.9 - NUTRITIONAL DEFICIENCY, UNSPECIFIED Status: Acute - Plan continue doxepin, prozac, remeron, mucinex. CT sinuses and neck showed no gross abnormalities barium studies donot show mechanical/obstr issues for swallowing hemostable, encourage po intake, ensure cans if she likes ?chocolate/vanilla/ cold for peg tube in am, on calorie count continue megace, protonix add vit c, vit d3, b12 and mvi to mobilize in hallway as tolerated spiritual consultation to help boost her confidence and morale.
[2019-05-28] MEDS: Doxepin HCl 25 MG CAP PO SCH (20:28)
[2019-05-28] MEDS: Mirtazapine 15 MG Soltab PER TUBE SCH (20:29)
[2019-05-28] MEDS: Multivitamin W/ Minerals 1 TAB PO SCH (20:29)
[2019-05-29 06:17] LABS: Hemoglobin 9.8 g/dL (12.0-16.0); Mean Corpuscular HGB CONC 34.3 g/dL (32.0-36.0); Mean Corpuscular Hemoglobin 30.4 pg (27.0-31.0); Mean Corpuscular Volume 88.7 fL (78.0-98.0); Mean Platelet Volume 8.3 fL (7.4-10.4); Platelet Count 137 thou/uL (130-400); Red Blood Cell (RBC) Count 3.23 mill/uL (4.20-5.40); White Blood Cell (WBC) Count 3.5 thou/uL (4.8-10.8)
--- NOTE | 2019-05-29 06:19 | PDOC.EVN ---
Event Note - Event Note Event Note: RN called - Patient fell without significant injuries. No injury. Will continue to monitor
[2019-05-29 06:29] LABS: Anion Gap 17 mmol/L (10-20); BUN (Urea Nitrogen) 12 mg/dL (9.8-20.1); Calc. Creatinine Clearance 52 mL/min (70-130); Calcium 9.2 mg/dL (7.8-10.44); Carbon Dioxide 20 mmol/L (23-31); Chloride 102 mmol/L (98-107); Estimated GFR-MDRD 77; Glucose 117 mg/dL (83-110); Potassium 3.8 mmol/L (3.5-5.1); Sodium 135 mmol/L (136-145)
[2019-05-29 06:39] LABS: Band 3 % (5-11); Eosinophils 5 % (0-10); Lymphocytes 65 % (21-51); MDiff Complete? YES; Monocytes 9 % (0-10); Neutrophil 18 % (42-75)
[2019-05-29] MEDS ORDERED: ceFAZolin Sodium (SDC) 2 GM/100 ML BAG ONE (08:52)
[2019-05-29] MEDS: Ferrous Gluconate 324 MG TAB PO SCH (10:30)
[2019-05-29] MEDS: Cyanocobalamin (Vitamin B-12) 1,000 MCG TAB PO SCH (10:30)
[2019-05-29] MEDS: Ascorbic Acid 500 mg Chewable Tablet PO SCH (10:30)
[2019-05-29] MEDS: guaiFENesin ER 600 MG TAB PO SCH ×2 (10:30→20:03)
[2019-05-29] MEDS: FLUoxetine HCl 20 MG CAP PO SCH (10:30)
[2019-05-29] MEDS: Megestrol Acetate 40 MG TAB PER TUBE SCH ×4 (10:31→20:03)
[2019-05-29] MEDS: Multivitamin W/ Minerals 1 TAB PO SCH ×2 (10:31→20:03)
[2019-05-29] MEDS: Pantoprazole 40 MG VIAL IVP SCH (11:38)
[2019-05-29] MEDS: Folic Acid 0.5 MG in Admixture Fee 1 EACH SC SCH (11:38)
--- NOTE | 2019-05-29 12:47 | PDOC.HOSPP ---
- Subjective Encounter Date: 05/29/19 Encounter Time: 12:00 Subjective: had peg tube placed this am, daughter at bedside no abd pain - Objective Vital Signs & Weight: Vital Signs (12 hours) Temp Pulse Resp BP BP Pulse Ox 05/29/19 11:29 98.3 F 70 18 125/69 95 05/29/19 10:40 67 18 112/72 96 05/29/19 10:10 97.5 F L 62 18 123/73 97 05/29/19 07:47 97.9 F 75 16 124/84 100 05/29/19 07:40 100 05/29/19 05:40 97.6 F 97 18 134/86 97 Weight Admit Weight 110 lb 3.698 oz Weight 110 lb 3.698 oz I&O: 05/28/19 05/29/19 05/30/19 06:59 06:59 06:59 Intake Total 540 250 Balance 540 250 Result Diagrams: 05/29/19 05:47 05/29/19 05:47 ROS - Medication Medications: Active Medications Generic Name Dose Route Start Last Admin Trade Name Freq PRN Reason Stop Dose Admin Ascorbic Acid 500 mg 05/29/19 09:00 05/29/19 10:30 Vitamin C PO Not Given DAILY [facility] Cholecalciferol 1,000 units 05/29/19 09:00 05/29/19 10:30 Vitamin D3 PO Not Given DAILY [facility] Cyanocobalamin 1,000 mcg 05/29/19 09:00 05/29/19 10:30 Vitamin B-12 PO Not Given DAILY [facility] Doxepin HCl 25 mg 05/27/19 21:00 05/28/19 20:28 Sinequan PO 25 mg [facility] Administration Ferrous Gluconate 324 mg 05/28/19 09:00 05/29/19 10:30 Fergon PO Not Given DAILY [facility] Fluoxetine HCl 20 mg 05/28/19 09:00 05/29/19 10:30 Prozac PO Not Given DAILY [facility] Guaifenesin 600 mg 05/27/19 21:00 05/29/19 10:30 Mucinex PO Not Given Q12HR [facility] Folic Acid 0.5 mg/ 0.1 mls @ 0 mls/hr 05/26/19 12:00 05/29/19 11:38 Miscellaneous Medication SC 05/31/19 12:01 0.1 mls Q24HR LIZZ Administration Iron/Minerals/Multivitamins 1 tab 05/28/19 21:00 05/29/19 10:31 Theragran M PO Not Given BID [facility] Megestrol Acetate 40 mg 05/27/19 09:00 05/29/19 10:31 Megace PER TUBE Not Given QID [facility] Mirtazapine 15 mg 05/27/19 21:00 05/28/19 20:29 Remeron Soltab PER TUBE 15 mg HS LIZZ Administration Ondansetron HCl 4 mg 05/22/19 15:43 05/23/19 08:15 Zofran IVP 4 mg Q6H PRN Administration Nausea/Vomiting Pantoprazole Sodium 40 mg 05/23/19 09:00 05/29/19 11:38 Protonix IVP 40 mg DAILY LIZZ Administration Senna/Docusate Sodium 2 tab 05/27/19 06:30 05/27/19 08:22 Senokot S PER TUBE 2 tab BID PRN Administration Constipation Sodium Chloride 10 ml 05/24/19 09:00 05/29/19 11:38 Flush - Normal Saline IVF 10 ml Q12HR LIZZ Administration - Exam NAD, awake alert Eye: PERRL, anicteric sclera ENT: no oropharyngeal lesions, moist mucosa Neck: supple, no JVD Heart: RRR, no murmur Respiratory: no wheezes, no rales Gastrointestinal: soft, non-tender, normal bowel sounds Gastrointestinal - other findings: peg + Extremities: no cyanosis, no edema Neurological: CN's grossly intact, no focal deficits Psychiatric: A&O x 3 Hosp A/P (1) Depression Code(s): F32.9 - MAJOR DEPRESSIVE DISORDER, SINGLE EPISODE, UNSPECIFIED Status : Suspected Qualifiers: Depression Type: major depressive disorder Psychotic features: without psychotic features (2) Dysphagia Code(s): R13.10 - DYSPHAGIA, UNSPECIFIED Status: Acute Qualifiers: Dysphagia type: unspecified Qualified Code(s): R13.10 - Dysphagia, unspecified (3) Folate deficiency Code(s): E53.8 - DEFICIENCY OF OTHER SPECIFIED B GROUP VITAMINS Status: Acute (4) GERD (gastroesophageal reflux disease) Code(s): K21.9 - GASTRO-ESOPHAGEAL REFLUX DISEASE WITHOUT ESOPHAGITIS Status: Chronic (5) Weight loss, unintentional Code(s): R63.4 - ABNORMAL WEIGHT LOSS Status: Acute (6) Failure to thrive in adult Status: Chronic (7) Nutritional deficiency Code(s): E63.9 - NUTRITIONAL DEFICIENCY, UNSPECIFIED Status: Acute - Plan continue doxepin, prozac, remeron, mucinex. to start peg feeding from this evening hemostable, encourage po intake, ensure cans if she likes ?chocolate/vanilla/ cold continue megace, protonix vit c, vit d3, b12 and mvi to mobilize in hallway as tolerated likely dc plan to [facility], d/w daughter at bedside Her bone marrow is likely responding to nutritional intake now, flow cytometry in am
--- NOTE | 2019-05-29 13:58 | OP ---
DATE OF PROCEDURE: 05/29/2019 PROCEDURES PERFORMED: Esophagogastroduodenoscopy with percutaneous endoscopic gastrostomy tube placement and biopsy and esophageal balloon dilation. PREOPERATIVE DIAGNOSES: Protein-calorie malnutrition and failure to thrive and inability to meet nutritional needs orally. DESCRIPTION OF PROCEDURE: Informed consent was obtained from the patient. She was sedated with total intravenous anesthesia. The bite block was placed, and the endoscope was advanced easily to the second portion of the duodenum, and retroflexion was performed in the stomach. The esophagus had a ring in the distal esophagus, through which the scope could pass easily. This was dilated to 18 mm with a balloon dilator. There was an appropriate shallow tear at the dilation site. Biopsies were obtained from the esophagus to rule out eosinophilic esophagitis. There was erythematous gastritis in the antrum and body of the stomach. This was mild overall. Biopsies were obtained from the antrum and body to rule out H pylori. The pylorus was normal. There was flat adenomatous tissue just distal to the pylorus on the superior part of the first portion of the duodenum. This was most consistent with benign gastric heterotopia. Biopsies were obtained to rule out adenomatous change. The second portion of the duodenum was normal. Biopsies were obtained to rule out celiac disease. The stomach was fully insufflated, and the appropriate site in the gastric body was identified by transillumination and palpation. The patient received Ancef prior to the procedure. The skin was sterilized with chlorhexidine. The skin was sterilized with 5 mL of 1% lidocaine. A small skin incision was performed with a scalpel, and the catheter was placed through the incision site into the stomach under direct visualization in 1 attempt. The guidewire was passed through the catheter and grasped with snare and pulled out through the patient's mouth. A 20-Singaporean gastrostomy tube was then placed by the pull-through technique. Second-look endoscopy showed the internal bumper to be in good position. The external bumper was placed at 3.5 cm. The air and fluid were suctioned from the stomach. The patient tolerated the procedure well. IMPRESSION: 1. Distal esophageal ring dilated to 18 mm with a balloon dilator. A shallow tear was achieved at the dilation site. Biopsies were obtained from the esophagus to rule out eosinophilic esophagitis. 2. Erythematous mild gastritis in the antrum and body of the stomach biopsied to rule out Helicobacter pylori. 3. Flat polypoid mucosa on the superior part of the first portion of the duodenum just distal to the pylorus consistent with benign gastric heterotopia. Biopsies were obtained to rule out adenomatous change. 4. Otherwise normal EGD. Duodenal biopsies were obtained to rule out celiac disease. 5. Successful placement of 20-Singaporean gastrostomy tube with a rubber internal bumper and the external bumper placed at 3.5 cm. RECOMMENDATIONS: 1. Await histopathology. 2. She can start feeds through her PEG tube and also restart oral diet in 8 hours. 3. What she does take by mouth should be a mechanical soft diet. Job ID: [id number]
[2019-05-29] MEDS ORDERED: Morphine 2 MG/ML SYRINGE SLOW IVP PRN (15:30)
[2019-05-29] MEDS ORDERED: Sodium Bicarbonate Tab 325 MG TAB PER TUBE PRN (15:58)
[2019-05-29] MEDS ORDERED: Pancrelipase DR 12000 1 CAP FS PRN (15:58)
[2019-05-29] MEDS ORDERED: Lidocaine 1% PF 5 ML VIAL ONE (16:22)
[2019-05-29] MEDS ORDERED: PROPOFOL 200 MG/20 ML VIAL ONE (16:22)
[2019-05-29 17:35] LABS: Magnesium 1.4 mg/dL (1.6-2.6); Phosphorus 3.6 mg/dL (2.3-4.7)
[2019-05-29] MEDS: Doxepin HCl 25 MG CAP PO SCH (20:03)
[2019-05-29] MEDS: Mirtazapine 15 MG Soltab PER TUBE SCH (20:03)
[2019-05-30 06:21] LABS: Hemoglobin 8.8 g/dL (12.0-16.0); Mean Corpuscular HGB CONC 33.9 g/dL (32.0-36.0); Mean Corpuscular Hemoglobin 30.4 pg (27.0-31.0); Mean Corpuscular Volume 89.7 fL (78.0-98.0); Platelet Count 126 thou/uL (130-400); RBC Distribution Width 14.4 % (11.5-14.5); White Blood Cell (WBC) Count 5.9 thou/uL (4.8-10.8)
[2019-05-30 06:38] LABS: Anion Gap 14 mmol/L (10-20); BUN (Urea Nitrogen) 13 mg/dL (9.8-20.1); Calc. Creatinine Clearance 54 mL/min (70-130); Calcium 8.4 mg/dL (7.8-10.44); Carbon Dioxide 21 mmol/L (23-31); Chloride 102 mmol/L (98-107); Estimated GFR-MDRD 80; Glucose 132 mg/dL (83-110); Potassium 3.5 mmol/L (3.5-5.1); Sodium 133 mmol/L (136-145)
[2019-05-30] MEDS: Ascorbic Acid 500 mg Chewable Tablet PO SCH (08:46)
[2019-05-30] MEDS: Multivitamin W/ Minerals 1 TAB PO SCH ×2 (08:46→20:39)
[2019-05-30] MEDS: Cyanocobalamin (Vitamin B-12) 1,000 MCG TAB PO SCH (08:46)
[2019-05-30] MEDS: guaiFENesin ER 600 MG TAB PO SCH ×2 (08:46→20:39)
[2019-05-30] MEDS: Ferrous Gluconate 324 MG TAB PO SCH (08:46)
[2019-05-30] MEDS: Megestrol Acetate 40 MG TAB PER TUBE SCH ×4 (08:47→20:39)
[2019-05-30] MEDS: FLUoxetine HCl 20 MG CAP PO SCH (08:47)
[2019-05-30] MEDS: Magnesium Oxide 400 MG TAB PO SCH ×2 (08:50→20:39)
[2019-05-30] MEDS: Pantoprazole 40 MG VIAL IVP SCH (08:50)
[2019-05-30 09:09] LABS: Band 8 % (5-11); Eosinophils 9 % (0-10); Lymphocytes 35 % (21-51); MDiff Complete? YES; Monocytes 14 % (0-10); Myelocyte 1 % (0-0); Neutrophil 33 % (42-75); Platelet Morphology Comment Appears Decreased; Polychromasia SLIGHT = 2-3 cells (100X) (0-2/hpf)
[2019-05-30] MEDS: Folic Acid 0.5 MG in Admixture Fee 1 EACH SC SCH (12:11)
[2019-05-30] MEDS: HYDROcodone/Acetaminophen 5/325 mg Tablet PER TUBE PRN ×3 (12:15→21:44)
--- NOTE | 2019-05-30 12:30 | PDOC.HOSPP ---
- Subjective Encounter Date: 05/30/19 Encounter Time: 11:25 Subjective: awake, sister at bedside had some abd pain after adjusting her peg tube - Objective Vital Signs & Weight: Vital Signs (12 hours) Temp Pulse Resp BP Pulse Ox 05/30/19 08:31 97.6 F 76 20 98/61 94 L 05/30/19 04:14 98.0 F 75 14 100/64 94 L Weight Admit Weight 110 lb 3.698 oz Weight 110 lb 3.698 oz I&O: 05/29/19 05/30/19 05/31/19 06:59 06:59 06:59 Intake Total 250 1233 Output Total 100 Balance 250 1133 Result Diagrams: 05/30/19 06:00 05/30/19 06:00 ROS - Medication Medications: Active Medications Generic Name Dose Route Start Last Admin Trade Name Freq PRN Reason Stop Dose Admin Hydrocodone Bitart/Acetaminophen 1 tab 05/27/19 06:30 05/30/19 12:15 Kelly 5/325 PER TUBE 1 tab Q4H PRN Administration Moderate to Severe Pain (6-10) Ascorbic Acid 500 mg 05/29/19 09:00 05/30/19 08:46 Vitamin C PO 500 mg DAILY LIZZ Administration Cholecalciferol 1,000 units 05/29/19 09:00 05/30/19 08:46 Vitamin D3 PO 1,000 units DAILY LIZZ Administration Cyanocobalamin 1,000 mcg 05/29/19 09:00 05/30/19 08:46 Vitamin B-12 PO 1,000 mcg DAILY LIZZ Administration Doxepin HCl 25 mg 05/27/19 21:00 05/29/19 20:03 Sinequan PO 25 mg HS LIZZ Administration Ferrous Gluconate 324 mg 05/28/19 09:00 05/30/19 08:46 Fergon PO 324 mg DAILY LIZZ Administration Fluoxetine HCl 20 mg 05/28/19 09:00 05/30/19 08:47 Prozac PO 20 mg DAILY LIZZ Administration Guaifenesin 600 mg 05/27/19 21:00 05/30/19 08:46 Mucinex PO 600 mg Q12HR LIZZ Administration Folic Acid 0.5 mg/ 0.1 mls @ 0 mls/hr 05/26/19 12:00 05/30/19 12:11 Miscellaneous Medication SC 05/31/19 12:01 0.1 mls Q24HR LIZZ Administration Iron/Minerals/Multivitamins 1 tab 05/28/19 21:00 05/30/19 08:46 Theragran M PO 1 tab BID LIZZ Administration Magnesium Oxide 400 mg 05/30/19 09:00 05/30/19 08:50 Magnesium Oxide PO 400 mg BID LIZZ Administration Megestrol Acetate 40 mg 05/27/19 09:00 05/30/19 12:10 Megace PER TUBE 40 mg QID LIZZ Administration Mirtazapine 15 mg 05/27/19 21:00 05/29/19 20:03 Remeron Soltab PER TUBE 15 mg HS LIZZ Administration Morphine Sulfate 2 mg 05/29/19 15:30 05/29/19 15:42 Morphine SLOW IVP 2 mg Q4H PRN Administration Pain Ondansetron HCl 4 mg 05/22/19 15:43 05/23/19 08:15 Zofran IVP 4 mg Q6H PRN Administration Nausea/Vomiting Pantoprazole Sodium 40 mg 05/23/19 09:00 05/30/19 08:50 Protonix IVP 40 mg DAILY LIZZ Administration Senna/Docusate Sodium 2 tab 05/27/19 06:30 05/27/19 08:22 Senokot S PER TUBE 2 tab BID PRN Administration Constipation Sodium Chloride 10 ml 05/24/19 09:00 05/30/19 08:51 Flush - Normal Saline IVF 10 ml Q12HR LIZZ Administration Sodium Chloride 10 ml 05/24/19 08:09 05/29/19 15:43 Flush - Normal Saline IVF 10 ml PRN PRN Administration Saline Flush - Exam NAD, awake alert Eye: PERRL, anicteric sclera ENT: no oropharyngeal lesions, moist mucosa Neck: supple, no JVD Heart: RRR, no murmur Respiratory: no wheezes, no rales Gastrointestinal: soft, non-distended, normal bowel sounds Gastrointestinal - other findings: peg+ Extremities: no cyanosis, no edema Neurological: CN's grossly intact, no focal deficits Psychiatric: A&O x 3 Hosp A/P (1) Depression Code(s): F32.9 - MAJOR DEPRESSIVE DISORDER, SINGLE EPISODE, UNSPECIFIED Status : Suspected Qualifiers: Depression Type: major depressive disorder Psychotic features: without psychotic features (2) Dysphagia Code(s): R13.10 - DYSPHAGIA, UNSPECIFIED Status: Acute Qualifiers: Dysphagia type: unspecified Qualified Code(s): R13.10 - Dysphagia, unspecified (3) Folate deficiency Code(s): E53.8 - DEFICIENCY OF OTHER SPECIFIED B GROUP VITAMINS Status: Acute (4) GERD (gastroesophageal reflux disease) Code(s): K21.9 - GASTRO-ESOPHAGEAL REFLUX DISEASE WITHOUT ESOPHAGITIS Status: Chronic (5) Weight loss, unintentional Code(s): R63.4 - ABNORMAL WEIGHT LOSS Status: Acute (6) Failure to thrive in adult Status: Chronic (7) Nutritional deficiency Code(s): E63.9 - NUTRITIONAL DEFICIENCY, UNSPECIFIED Status: Acute - Plan continue doxepin, prozac, remeron, mucinex. continue peg feeding, free water 200mls x4/day. hemostable continue megace, protonix vit c, vit d3, b12 and mvi to mobilize in hallway as tolerated likely dc plan to [facility], d/w daughter at bedside Her bone marrow is likely responding to nutritional intake now, flow cytometry May dc if placement is ready
--- NOTE | 2019-05-30 14:13 | PRG ---
DATE OF SERVICE: 05/30/2019 SUBJECTIVE: Ms. Yin is tolerating her PEG tube feeds well. She has taken a small amount by mouth. She has no abdominal pain. OBJECTIVE: VITAL SIGNS: Temperature 97.3, pulse 76, and blood pressure 105/66. GENERAL: She is in no acute distress. Alert and oriented x3. LUNGS: Clear to auscultation bilaterally. HEART: Regular rate and rhythm. ABDOMEN: Soft, nontender, nondistended. Bowel sounds are present. PEG site appears healthy. I loosen the external bumper from 3.5 cm to 4.5 cm. EXTREMITIES: No lower extremity edema. IMPRESSION: 1. Malnutrition and failure to thrive due to poor oral intake and lack of appetite. There is no structural lesion or motility lesion identified by endoscopy and outside CT and barium studies of the esophagus and stomach. CT of the brain was negative. 2. Esophageal ring, status post balloon dilation to 18 mm. 3. Pancytopenia, likely secondary to nutritional deficiencies. 4. Folate deficiency. 5. Apparent depression with flat affect and lack of motivation to mobilize and eat. RECOMMENDATIONS: 1. Await histopathology from biopsies from yesterday. 2. Supplement tube feeds as needed depending on her oral intake. 3. She can discharge to a rehab from a GI standpoint for physical therapy and adjustment of her tube feeds as needed. 4. I have encouraged her to schedule psychiatric outpatient evaluation and treatment as well. 5. Ultimately, if she starts taking adequate oral intake, then the PEG tube could be removed, however, must stay in at least 2 months. 6. Folate supplementation. 7. I will sign off. Please call if GI can be of assistance. Job ID: [id number]
[2019-05-30] MEDS: Mirtazapine 15 MG Soltab PER TUBE SCH (20:39)
[2019-05-30] MEDS: Doxepin HCl 25 MG CAP PO SCH (20:39)
[2019-05-31 07:16] LABS: Anion Gap 13 mmol/L (10-20); BUN (Urea Nitrogen) 15 mg/dL (9.8-20.1); Calc. Creatinine Clearance 58 mL/min (70-130); Carbon Dioxide 22 mmol/L (23-31); Chloride 100 mmol/L (98-107); Estimated GFR-MDRD 87; Glucose 117 mg/dL (83-110); Mean Corpuscular HGB CONC 33.2 g/dL (32.0-36.0); Mean Corpuscular Hemoglobin 29.3 pg (27.0-31.0); Mean Platelet Volume 8.5 fL (7.4-10.4); Platelet Count 122 thou/uL (130-400); Potassium 3.8 mmol/L (3.5-5.1); RBC Distribution Width 14.3 % (11.5-14.5); Red Blood Cell (RBC) Count 2.74 mill/uL (4.20-5.40); Sodium 131 mmol/L (136-145); White Blood Cell (WBC) Count 4.2 thou/uL (4.8-10.8)
[2019-05-31] MEDS: Multivitamin W/ Minerals 1 TAB PO SCH (07:55)
[2019-05-31] MEDS: Cyanocobalamin (Vitamin B-12) 1,000 MCG TAB PO SCH (07:56)
[2019-05-31] MEDS: Ascorbic Acid 500 mg Chewable Tablet PO SCH (07:56)
[2019-05-31] MEDS: FLUoxetine HCl 20 MG CAP PO SCH (07:57)
[2019-05-31] MEDS: Magnesium Oxide 400 MG TAB PO SCH (07:57)
[2019-05-31] MEDS: Ferrous Gluconate 324 MG TAB PO SCH (07:58)
[2019-05-31] MEDS: Megestrol Acetate 40 MG TAB PER TUBE SCH ×2 (07:58→12:20)
[2019-05-31] MEDS: guaiFENesin ER 600 MG TAB PO SCH (07:58)
[2019-05-31] MEDS: Pantoprazole 40 MG VIAL IVP SCH (08:00)
[2019-05-31 09:14] LABS: Band 17 % (5-11); Eosinophils 6 % (0-10); Lymphocytes 27 % (21-51); MDiff Complete? YES; Monocytes 17 % (0-10); Neutrophil 33 % (42-75); Platelet Morphology Comment Appears Decreased; Polychromasia SLIGHT = 2-3 cells (100X) (0-2/hpf)
[2019-05-31] MEDS: HYDROcodone/Acetaminophen 5/325 mg Tablet PER TUBE PRN (10:48)
[2019-05-31 11:04] VITALS: BP 97/62; TEMP 97.9
[2019-05-31] MEDS: Folic Acid 0.5 MG in Admixture Fee 1 EACH SC SCH (12:15)
--- NOTE | 2019-05-31 12:39 | DIS ---
DATE OF ADMISSION: 05/23/2019 DATE OF DISCHARGE: 05/31/2019 TRANSFER OF CARE NOTE: DISCHARGE DISPOSITION: Discharge to [facility] under the care of Dr. Marcelo. PRIMARY CARE PROVIDER: Dr. Barker. FINAL DIAGNOSES: 1. Nausea and vomiting, unspecified. 2. Chronic kidney disease stage 3. 3. Adult failure to thrive. 4. Abnormal weight loss due to nutritional deficiency. 5. Folate deficiency. 6. Hypokalemia. 7. Gastroesophageal reflux disease. 8. Parotid mass. DISCHARGE MEDICATIONS: 1. Omeprazole 40 mg a day per tube. 2. Ferrous gluconate 324 mg a day per tube. 3. Mucinex 600 mg p.o. q.12 hours per tube. 4. Sodium bicarbonate 650 mg per protocol. 5. Pancreas 1 capsule per tube occlusion protocol. 6. Zofran oral dissolving tablets 4 mg p.o. q.6 hours prn. 7. Multivitamin 1 tablet per tube b.i.d. 8. Remeron 15 mg per tube at bedtime. 9. Megace 40 mg per tube q.i.d. 10. Magnesium oxide 400 mg per tube b.i.d. 11. Prozac 20 mg per tube daily. 12. Doxepin 25 mg per tube at bedtime. 13. B12 of 1000 mcg daily. 14. Vitamin D3 one p.o. daily. 15. Vitamin C 500 mg per tube daily. ALLERGIES: METOPROLOL, SULFA. DIET: Tube feedings. PENDING AT TIME OF DISCHARGE: Nothing. CODE STATUS: DNAR. HOSPITAL COURSE: [facility] with dysphagia, nausea, vomiting, failure to thrive. The patient's initial studies revealed a white count of 2.6, hemoglobin 11.4, and platelet count of 190,000. Sodium 135, potassium 2.8, chloride 95, CO2 of 20, BUN 16, creatinine 1.2, GFR 43, glucose 72, calcium 9.2, alkaline phosphatase 53, serum protein 6.4, and albumin 3.8. The patient was post EGD at [facility] 2 weeks prior to admission, had a Schatzki ring on EGD. Diagnosis of depression was made. The patient was seen in consultation by Dr. Edison Valera, Gastroenterology; Tanya Jay, Oncology. On 05/29/2019, an EGD was performed with an esophageal balloon dilation, percutaneous gastrostomy tube placement. The results of the esophageal specimen taken are pending. Soft tissue of CT of the neck, modified barium swallow were done. She had barium studies done for dysphagia. No aspiration or penetration was seen. The patient has soft tissue neck enhancing lesion in the right parotid gland, that will need to be followed up by ENT as an outpatient. Potentially, a biopsy would need to be done. Dr. Marcelo will follow up the patient at [facility]. Job ID: [id number] [facility]
--- NOTE | 2019-05-31 16:31 | PQF ---
PAULINE AMAYA, [facility] [id number] CLINICAL DOCUMENTATION IMPROVEMENT CLARIFICATION FORM: ICD-10 Updated PLEASE DO AN ADDENDUM TO THE PROGRESS NOTE WITH ANY DOCUMENTATION UPDATES OR ADDITIONS AND CARRY THROUGH TO DC SUMMARY. THANK YOU. Date: 05/31/19 ATTN: DR. Antionette SANTOYO Please exercise your independent, professional judgment in responding to the clarification form. Clinical indicators are provided on the bottom of this form for your review. Please check appropriate box(s): [ x ] Protein Calorie Malnutrition: [ ] Mild [ xx] Moderate [ ] Severe [ ] Other Malnutrition (please specify) __ [ ] Cachexia [ ] Other diagnosis [ ] Unable to determine In addition, please specify: Present on Admission (POA): [ x Yes [ ] No [ ] Unable to determine CLINICAL INDICATORS - SIGNS / SYMPTOMS / LABS 05/22 H & P ( LORENZO) PRESENTS WITH ROUGHLY 6 MONTHS OF WORSENING FAILURE TO THRIVE INCLUDING LOW APPETITE, DYSPHAGIA, NAUSEA, VOMITING. THE PATIENT HAS NO APPETITE. ASSESSMENT: 1). FAILURE TO THRIVE, SHE HAS UNINTENTIONALLY LOST 20 LBS OF WEIGHT AND NOW REFUSES TO EAT BECAUSE SHE HAS NO APPETITE 05/23 PN (LORENZO) A/P 1) DYSPHAGIA, 2) FAILURE TO THRIVE, 3) WEIGHT LOSS, UNINTENTIONAL, 4). DEPRESSION, 5)GERD, 6). LOWER ESOPHAGEAL RING (NIKOLAS) 05/24 PN (JASON) IMPRESSION: DEHYDRATION 05/[address]--18.5% WT LOSS X 3-6 MONTHS PER DAUGHTER REPORT RISK: DEPRESSION, MINERAL DEFICIENCY, UNINTENTIONAL WEIGHT LOSS TREATMENTS: GI CONSULT PEG PLACEMENT (05/29) NUTRITIONAL ASSESSMENT APPETITE STIMULANT Moderate Malnutrition (in acute illness) Energy Intake: <75% of estimated energy requirement for > 7 days Weight Loss: 1-2%/1 week; 5%/ 1 month; 7.5%/3 months Other: mild body fat loss; mild muscle mass loss; mild fluid accumulation; Severe Malnutrition (in acute illness) Energy Intake: < 50% of estimated energy requirement for > 5 days Weight Loss: >1-2%/1 week; >5%/1 month; >7.5%/3 months Other: moderate body fat loss; moderate muscle mass loss; moderate- severe fluid accumulation; measurably reduced lining layer strength Moderate Malnutrition (in chronic illness) Energy Intake: <75% of estimated energy requirement for >1 month Weight Loss: 5%/1 month; 7.5%/3 months; 10%/6 months; 20%/1 year Other: mild body fat loss; mild muscle mass loss; mild fluid accumulation Severe Malnutrition (in chronic illness) Energy Intake: <75% of estimated energy requirement for >1 month Weight Loss: >5%/1 month; >7.5%/3 months; >10%/6 months; >20%/1 year Other: severe body fat loss; severe muscle mass loss; severe fluid accumulation ; measurably reduced lining layer strength THANK YOU! YOU (This form is maintained as a part of the permanent medical record) 2014 [employer], [place]. All Rights Reserved [email or web address] [phone] MTDD
[2019-06-01 16:09] LABS: A/G Ratio 1.2 (0.7-1.7); Albumin 2.8 g/dL (2.9-4.4); Alpha 1 0.2 g/dL (0.0-0.4); Alpha 2 0.9 g/dL (0.4-1.0); Beta 0.9 g/dL (0.7-1.3); Gamma 0.4 g/dL (0.4-1.8); Globulin, Total 2.4 g/dL (2.2-3.9); M-Spike Not Observed g/dL (Not Observed)
[2019-06-01 16:09] LABS: Albumin-Ur 44.2 % (.); Alpha 2 - Ur 19.9 % (.); Beta-Ur 17.4 % (.); Gamma-Ur 11.5 % (.); M-Spike,% Not Observed % (Not Observed); Protein, Urine 7.8 mg/dL (Not Estab.)
== END 2019-05-31 14:11 | disposition swing bed (61) | DRG 392 ==
LOC: ERS 11:52 → T4-B 16:59 → OBSVTOIN 05-23 14:44
PROVIDERS: ADMIT Internal Medicine; ATTEND Internal Medicine
PROC: 0DH67UZ Insertion of Feeding Device into Stomach, Via Natural or Artificial Opening (ICD-10-PCS; principal; 2019-05-30)
PROC: 0D758ZZ Dilation of Esophagus, Via Natural or Artificial Opening Endoscopic (ICD-10-PCS; 2019-05-30)
PROC: 0DB58ZX Excision of Esophagus, Via Natural or Artificial Opening Endoscopic, Diagnostic (ICD-10-PCS; 2019-05-30)
PROC: 0DB98ZX Excision of Duodenum, Via Natural or Artificial Opening Endoscopic, Diagnostic (ICD-10-PCS; 2019-05-30)
PROC: 0DB78ZX Excision of Stomach, Pylorus, Via Natural or Artificial Opening Endoscopic, Diagnostic (ICD-10-PCS; 2019-05-30)
DX: R13.10 Dysphagia, unspecified (principal); N17.9 Acute kidney failure, unspecified; E44.0 Moderate protein-calorie malnutrition; D61.818 Other pancytopenia; K21.9 Gastro-esophageal reflux disease without esophagitis; K29.70 Gastritis, unspecified, without bleeding; R62.7 Adult failure to thrive; F32.9 Major depressive disorder, single episode, unspecified; D50.9 Iron deficiency anemia, unspecified; E87.6 Hypokalemia; K22.2 Esophageal obstruction; E86.0 Dehydration; E53.8 Deficiency of other specified B group vitamins; N18.3 Chronic kidney disease, stage 3 (moderate); H50.40 Unspecified heterotropia; Z79.899 Other long term (current) drug therapy; Z88.2 Allergy status to sulfonamides; Z88.8 Allergy status to other drugs, medicaments and biological substances; Z68.20 Body mass index [BMI] 20.0-20.9, adult
CPT/HCPCS: 36415; 36416; 70470; 70491; 74018; 74230; 74247; 80048; 80053; 81001; 82306; 82525; 82550; 82607; 82728; 82746; 83516; 83540; 83550; 83615; 83735; 84100; 84165; 84166; 84425; 84443; 84446; 84484; 84590; 85025; 85610; 88184; 88305; 88312; 88313; 93005; 96360; C9113; J0690; J0696; J2001; J2060; J2270; J2405; J2704; J3480; J3490; J7050; J7120; Q9966; S0179